=== PATIENT | male | born 1935 | race Caucasian/White ===

== ENCOUNTER 2017-02-03 14:28 | Emergency (ER) | payer MEDICARE ==
[2017-02-03 15:37] LABS: BASOPHILS 0.1 % (0-2); EOSINOPHILS 0.4 % (0-7); HEMATOCRIT 30.2 % (42.0-54.0); HEMOGLOBIN 10.1 g/dL (13.5-17.5); IMMATURE GRANULOCYTES 1.7 % (0-5); LYMPHOCYTES 9.6 % (15-50); MCH 36.3 pg (26.0-34.0); MCHC 33.4 g/dL (31.0-37.0); MCV 108.6 fL (80.0-100.0); MEAN PLATELET VOLUME 12.3 fL (7.4-10.4); MONOCYTES 13.4 % (2-11); NEUTROPHILS 74.8 % (40-80); PLATELET COUNT 155 10x3/uL (130-400); RBC 2.78 10x6/uL (4.20-6.10); RDW 15.1 % (11.5-14.5); WBC 7.6 10x3/uL (4.8-10.8)
[2017-02-03 16:24] LABS: APPEARANCE CLEAR (CLEAR); BILIRUBIN NEGATIVE (NEGATIVE); COLOR YELLOW (YELLOW); GLUCOSE NEGATIVE (NEGATIVE); KETONE NEGATIVE (NEGATIVE); LEUKOCYTE ESTERASE NEGATIVE (NEGATIVE); NITRITE NEGATIVE (NEGATIVE); PROTEIN NEGATIVE (NEGATIVE); UROBILINOGEN NORMAL (NORMAL)
[2017-02-03 16:35] LABS: ALBUMIN 2.5 g/dL (3.4-5.0); ANION GAP 15.3 mmol/L (8-16); BILIRUBIN - TOTAL 0.65 mg/dL (0.2-1.3); CALCIUM 8.9 mg/dL (8.5-10.1); CARBON DIOXIDE 29.7 mmol/L (21.0-32.0); CREATININE - SERUM 1.1 mg/dL (0.6-1.3); PROTEIN - SERUM 6.4 g/dL (6.4-8.2)
== END 2017-02-03 18:13 | disposition home or self-care (01) ==
LOC: D.ER 14:28
PROVIDERS: Emergency Medicine
DX: M54.5 Low back pain (principal)

== ENCOUNTER 2017-02-26 16:03 | Inpatient (IN) | payer MEDICARE ==
[~2017-02-26] VITALS: Ht 177.8 cm; Wt 99.8 kg
[~2017-02-26 16:03] MED LIST: ASPIRIN325 MG PO; BUMEX 1 MG TAB1 MG PO; CALAN SR240 MG PO; CYCLOBENZAPRINE10 MG PO; ELIQUIS2.5 MG PO; GLUCOPHAGE500 MG PO; K-TAB10 MEQ PO; MINIPRESS 5 MG C5 MG PO; MULTIPLE VITAMI1 TA1 PO; NORCO 7.5/325 T1 TA1 PO; TENORMIN100 MG PO; TIMOPTIC XE 0.5%5 ML EACH EYE; XALATAN 0.0052.5 ML EACH EYE
--- NOTE | 2017-02-26 17:00 | NUR ---
REPORT CALLED TO [facility]. TRANSFERRED VIA BED TO ROOM 1140B. FAMILY AT BEDSIDE.
[2017-02-26 18:40] VITALS: BP 98/47; BMI 31.6
--- NOTE | 2017-02-26 19:09 | NUR ---
PT HAS RASH TO LLE FROM KNEE TO TOES. HAS WHAT APPEARS TO BE REPTURED BLISTERS TO TOP OF LEFT VALERA 2 X 3 CM. POSS. REPTURED BLISTER TO LEFT LATERAL FOOT AREA 1.5 X 2 CM. RLE HAS 3+ EDEMA. SMALL DSG BY RT NECK AND CLAVICLE. STATES HE FELL January. RT GROIN IS PURPLE. BACK OF RT LEG IS DARK PURPLE AND SOLD PURPLE FROM BOTTOM OF BUTTOCK CHEEK TO HALF WAY DOWN HIS LEG. RIGHT HIP HAS PURPLE PATCHES NOTED. LEFT HIP HAS PURPLE PATHES NOTED. STAGE 2 LEFT BUTTOCK CHEEK PRESSURE ULCER, 2 X 1.5 CM. JUST BELOW RIGHT BUTTOCK CHEEK 1 X 1 CM, NON STAGABLE. INSIDE LEFT BUTTOCK CHEEK = TWO STAGE 3 PRESSURE ULCERS. 4 X 0.75 CM, 4.5 X 2 CM. MEPILEX WAS APPLED TO PRESSURE WOUNDS. HEELS BRIDGED. STAGE 2 PRESSURE ULCER TO LEFT HEEL = 4 X 1.5 CM. O2 4L NC BOTH BUE HAVE 3+ FLUID LIKE EDEMA TO MID TO UPPER ARMS. IS MAX ASST TO TURN. HAS AIR MATTRESS IN PLACE. INCONT OF URINE AND STOOL ON PAD. ALERT AND ORIENTED.
[2017-02-26 19:45] VITALS: BP 112/51
--- NOTE | 2017-02-26 19:45 | NUR ---
ASSESSMENT PER FLOW SHEET, VS OBTAINED, DRESSINGS INTACT, PT USING URINAL INST, EMPTIED 250 MLS OF DARK YELLOW URINE FROM URINAL, PT SLIGHTLY AGITATED, REFUSED TO PUT GOWN BACK ON AT THIS TIME, STATES "ALL I WANT TO DO IS GET SOME REST", INFORMED PT THAT I WILL LET HIM REST, PT DENIES NEEDS AT THIS TIME, BED IN LOW POSITION, SIDE RAILS X 2, CALL LIGHT IN REACH
--- NOTE | 2017-02-26 20:30 | NUR ---
PT RESTING WITH EYES CLOSED, RESP QUIET, NO DISTRESS NOTED, LEFT UNDISTURBED AT THIS TIME
--- NOTE | 2017-02-26 21:10 | NUR ---
PT RESTING WITH EYES CLOSED, RESP QUIET, NO DISTRESS NOTED, LEFT UNDISTURBED AT THIS TIME, WAITING ON PHARMACY TO BRING MEDS
--- NOTE | 2017-02-26 21:40 | NUR ---
PT AWAKE, ADM BUMEX PO PER MD ORDERS, SEE EMAR, WITH FRESH H20, INFORMED PT THAT I WILL BE RIGHT BACK TO ADM EYE DROPS
--- NOTE | 2017-02-26 21:48 | NUR ---
ADM EYE DROPS PER MD ORDERS, SEE EMAR, ASSISTED PT WITH URINAL, PT VOIDED 175 MLS OF DARK YELLOW URINE, INFORMED PT THAT I WILL BE BACK IN A FEW MINUTES TO REPOSITION HIM, PT VERBALIZES UNDERSTANDING
--- NOTE | 2017-02-26 22:00 | NUR ---
THIS RN AND SUZANNA ABREU RN PLACED PT ON RAYSHAWN BED ALARM, PT AGREED TO PUTTING GOWN BACK ON, REPOSITIONED PT IN BED, LEGS AND HEELS ELEVATED, PT COVERED UP, PT STATES "THAT FEELS SO MUCH BETTER", PT NOT AGITATED AT THIS TIME, PT DENIES FURTHER NEEDS, BED IN LOW POSITION, SIDE RAILS X 2, CALL LIGHT IN REACH, BED ALARM WORKING PROPERLY
[2017-02-27] VITALS (16 sets, daily range): BP systolic 77–116; BP diastolic 36–56; Ht 177.8 cm; Wt 99.8 kg
--- NOTE | 2017-02-27 00:20 | NUR ---
PT RESTING WITH EYES CLOSED, RESP QUIET, NO DISTRESS NOTED, LEFT UNDISTURBED AT THIS TIME, BED IN LOW POSITION, SIDE RAILS X 2, CALL LIGHT IN REACH, BED ALARM ON AND WORKING PROPERLY
--- NOTE | 2017-02-27 01:08 | NUR ---
PT AWAKE, EMPTIED 250 MLS OF DARK YELLOW URINE FROM URINAL, PT STATES "I'M DOING OK", DENIES NEEDS OR PAIN, BED IN LOW POSITION, SIDE RAILS X 2, CALL LIGHT IN REACH, BED ALARM ON AND WORKING PROPERLY
--- NOTE | 2017-02-27 02:42 | NUR ---
PT AWAKE, SLIGHTLY AGITATED, WANTS TO GET UP, EXPLAINED TO PT THAT HE COULD NOT GET UP UNTIL PT CAME TO EVALUATE, PT REMOVED GOWN, REFUSED TO PUT IT BACK ON, PT C/O ALL OVER PAIN, ADM NORCO PO PER MD ORDERS, SEE EMAR, O2 PLACED BACK ON, WARM BLANKET PLACED OVER PT, PT STATES "THAT FEELS GOOD, I'M WARM NOW", PT DENIES FURTHER NEEDS, BED IN LOW POSITION, SIDE RAILS X 2, CALL LIGHT IN REACH, RAYSHAWN BED ALARM ON AND WORKING PROPERLY
--- NOTE | 2017-02-27 04:06 | NUR ---
PT RESTING WITH EYES CLOSED, RESP QUIET, NO DISTRESS NOTED, LEFT UNDISTURBED AT THIS TIME, BED IN LOW POSITION, SIDE RAILS X 2, CALL LIGHT IN REACH, RAYSHAWN BED ALARM ON AND WORKING PROPERLY
--- NOTE | 2017-02-27 04:50 | NUR ---
PT AWAKE, THIS RN AND SUZANNA ABREU, RN TO ROOM FOR LINE DRAW, PT SHERITA WELL, EXTRA DRAW SHEET PLACED, PT REPOSITIONED, GOWN AND O2 PLACED BACK ON, ASSISTED PT WITH URINAL, PT VOIDED 150 MLS OF DARK YELLOW URINE, PT DENIES FURTHER NEEDS, BED IN LOW POSITION, SIDE RAILS X 2, CALL LIGHT IN REACH, RAYSHAWN BED ALARM ON AND WORKING PROPERLY
[2017-02-27 05:16] LABS: BASOPHILS 0 % (0-2); EOSINOPHILS 0 % (0-7); HEMATOCRIT 23.9 % (42.0-54.0); HEMOGLOBIN 7.7 g/dL (13.5-17.5); IMMATURE GRANULOCYTES 0.6 % (0-5); LYMPHOCYTES 6.5 % (15-50); MCH 30.6 pg (26.0-34.0); MCHC 32.2 g/dL (31.0-37.0); MCV 94.8 fL (80.0-100.0); MONOCYTES 6.5 % (2-11); NEUTROPHILS 86.4 % (40-80); PLATELET COUNT 183 10x3/uL (130-400); RBC 2.52 10x6/uL (4.20-6.10); RDW 18.6 % (11.5-14.5); WBC 4.8 10x3/uL (4.8-10.8)
--- NOTE | 2017-02-27 05:18 | NUR ---
PT SKID MAN LIGHT, ASSISTED PT WITH TV, PT DENIES FURTHER NEEDS OR PAIN AT THIS TIME, BED IN LOW POSITION, SIDE RAILS X 2, CALL LIGHT IN REACH, RAYSHAWN BED ALARM ON AND WORKING PROPERLY
[2017-02-27 05:29] LABS: CALC OSMOLALITY 295 mosm/kg (275-300); CALCIUM 7.6 mg/dL (8.5-10.1); CARBON DIOXIDE 31.7 mmol/L (21.0-32.0); CHLORIDE - SERUM 106 mmol/L (98-107); CREATININE - SERUM 0.9 mg/dL (0.6-1.3); GLUCOSE 89 mg/dL (74-106); POTASSIUM - SERUM 3.1 mmol/L (3.5-5.1); SODIUM 143 mmol/L (136-145); UREA NITROGEN 45 mg/dL (7-18); eGFR NON AFRICAN AMERICAN 86 mL/min (90-120)
--- NOTE | 2017-02-27 06:44 | NUR ---
SHIFT REPORT TO DAY SHIFT
--- NOTE | 2017-02-27 07:43 | NUR ---
SITTING UP IN BED RESTING. OFFERS NO COMPLAINTS. NO S/SX OF DISTRESS. WILL CONITNUE TO MONITOR. CALL LIGHT IN REACH
--- NOTE | 2017-02-27 13:15 | NUR ---
BLOOD TRANSFUSION STARTED BY ESTIVEN WARNER RN AND MYSELF. PT TOLERATING WELL THUS FAR NO S/SX OF DISTRESS.
--- NOTE | 2017-02-27 14:15 | NUR ---
STARTED BLOOD TRANSFUSION RIGHT UPPER ARM PICC LINE STARTED AT 75ML/HR BY ESTIVEN WARNER RN.
--- NOTE | 2017-02-27 14:15 | NUR ---
FIRST UNIT OF PRBC STARTED AT 75ML/HR. PT IS ALERT AND ORIENTED FAMILY AT BEDSIDE. WILL CONTINUE TO MONITOR PT.
--- NOTE | 2017-02-27 14:30 | NUR ---
PT BP 70/55 WHICH IS LOWER THAN PRE-FUSION BP. PT SHOWS NO S/SX OF DISTRESS. ELEVATED LOWER EXTREMITIES AND INFORMED CHARGE NURSE ESTIVEN WARNER RN. FAMILY STILL REMAINS AT BEDSIDE. NO CONCERNS VOICED AT THIS TIME. WILL CONTINUE TO REMAIN AT BEDSIDE TO MONITOR PT.
--- NOTE | 2017-02-27 16:40 | NUR ---
BLOOD INFUSION COMPLETE PT IS ALERT AND ORIENTED EATING SOME DINNER. OFFERS NO COMPLAINTS AT THIS TIME. CALL LIGHT IN REACH. WILL CONTINUE TO MONITOR
--- NOTE | 2017-02-27 18:15 | NUR ---
SITTING UP IN BED RESTING. SECOND UNIT ON PRBC STARTED RUNNING AT 75ML/HR FOR THE 1ST 15 MIN. PT SHOWS NO S/SX OF DISTRESS. WILL CONTINUE TO MONITOR.
--- NOTE | 2017-02-27 18:19 | NUR ---
RESTING QUIETLY IN BED. NO S/S DISTRESS. CALL LIGHT IN REACH.
--- NOTE | 2017-02-27 18:30 | NUR ---
NO S/SX OF DISTRESS, EYES CLOSED RESTING QUIETLY. APPROPRIATE RISE AND FALL OF CHEST. EASILY AROUSED WITH VERBAL STIMULI. VITALS STABLE. RATE INFUSING IS NOW 125ML/HR. WILL CONTINUE TO MONITOR PT
--- NOTE | 2017-02-27 19:30 | NUR ---
PT REST IN BED, AND RECEIVED BLOOD TRANSFUSION.
--- NOTE | 2017-02-27 19:30 | NUR ---
prbc's infusing per midline, pt states he feels claustophobic, opened the blinds and he stated that helped. deep breathing exercises also were effective in decreasing anxiety. pt denies pain.
--- NOTE | 2017-02-27 19:52 | NUR ---
LYING IN BED HOB 30 DEGREES EYES CLOSED RESTING QUIETLY. NO S/SX OF DISTRESS. CONTINUES ON AT 2L NC. APPROPRIATE RISE AND FALL OF CHEST. EASILY AROUSED WITH VERBAL STIMULI. CALL LIGHT IN REACH. WILL CONTINUE TO MONITOR
--- NOTE | 2017-02-27 22:45 | NUR ---
CHECK PT'S VITAL SIGNS FOR BLOOD TRANSFUTION ORDERED. SEE FLOW SHEET.
--- NOTE | 2017-02-28 06:57 | NUR ---
RESTING QUIETLY IN BED. NO S/S DISTRESS. CALL LIGHT IN REACH
[2017-02-28 07:00] LABS: BASOPHILS 0 % (0-2); EOSINOPHILS 0.2 % (0-7); IMMATURE GRANULOCYTES 0.5 % (0-5); LYMPHOCYTES 6.5 % (15-50); MCH 30.9 pg (26.0-34.0); MCHC 33.1 g/dL (31.0-37.0); MCV 93.3 fL (80.0-100.0); MEAN PLATELET VOLUME 12.4 fL (7.4-10.4); MONOCYTES 8.5 % (2-11); NEUTROPHILS 84.3 % (40-80); PLATELET COUNT 156 10x3/uL (130-400); RDW 18.2 % (11.5-14.5)
[2017-02-28 07:02] VITALS: BP 110/54
[2017-02-28 07:15] LABS: HEMATOCRIT 29.3 % (42.0-54.0); HEMOGLOBIN 9.7 g/dL (13.5-17.5); RBC 3.14 10x6/uL (4.20-6.10)
--- NOTE | 2017-02-28 07:50 | NUR ---
LYING IN BED RESTING QUIETLY. OFFERS NO COMPLAINTS AT THIS TIME. CALL LIGHT IN REACH WILL CONTINUE TO MONTIOR
[2017-02-28 08:00] VITALS: BP 112/44
--- NOTE | 2017-02-28 17:30 | NUR ---
ASSISTED WITH EATING DINNER ATE 25% OF MEAL. OFFERS NO COMPLAINTS. WILL CONTINUE TO MONITOR. FAMILY AT BEDSIDE
--- NOTE | 2017-02-28 19:25 | NUR ---
IN BED, AWAKE. NO COMPLAINTS AT THIS TIME.
--- NOTE | 2017-02-28 19:30 | NUR ---
SIT UP IN BED AND WATCH TV.
[2017-02-28 23:51] VITALS: BP 112/56
--- NOTE | 2017-03-01 00:35 | NUR ---
REST IN BED QUIETLY, EYE CLOSE, BED LOW, CALL LIGHT WITHIN REACH.
[2017-03-01 03:25] LABS: BASOPHILS 0 % (0-2); EOSINOPHILS 0.9 % (0-7); HEMATOCRIT 30.5 % (42.0-54.0); HEMOGLOBIN 9.7 g/dL (13.5-17.5); IMMATURE GRANULOCYTES 0.9 % (0-5); LYMPHOCYTES 11.5 % (15-50); MCH 30.4 pg (26.0-34.0); MCHC 31.8 g/dL (31.0-37.0); MEAN PLATELET VOLUME 11.6 fL (7.4-10.4); NEUTROPHILS 82.7 % (40-80); PLATELET COUNT 173 10x3/uL (130-400); RBC 3.19 10x6/uL (4.20-6.10); RDW 18.3 % (11.5-14.5); WBC 4.5 10x3/uL (4.8-10.8)
[2017-03-01 03:26] LABS: MCV 95.6 fL (80.0-100.0)
[2017-03-01 03:47] LABS: CALCIUM 7.8 mg/dL (8.5-10.1); CARBON DIOXIDE 32.5 mmol/L (21.0-32.0); CHLORIDE - SERUM 109 mmol/L (98-107); CREATININE - SERUM 0.8 mg/dL (0.6-1.3); GLUCOSE 87 mg/dL (74-106); SODIUM 142 mmol/L (136-145); eGFR NON AFRICAN AMERICAN > 90 mL/min (90-120)
[2017-03-01 03:49] LABS: CALC OSMOLALITY 286 mosm/kg (275-300); POTASSIUM - SERUM 3.6 mmol/L (3.5-5.1); UREA NITROGEN 27 mg/dL (7-18)
--- NOTE | 2017-03-01 07:16 | NUR ---
RESTING QUIETLY IN BED. NO S/S DISTRESS. CALL LIGHT IN REACH
[2017-03-01 08:44] VITALS: BP 137/56
--- NOTE | 2017-03-01 09:40 | NUR ---
PT AM MEDS ADMINISTERED. PT DENIES NEEDS. WCTM.
--- NOTE | 2017-03-01 10:30 | NUR ---
PT REQ AND REC'D PRN PAIN MED. WCTM.
--- NOTE | 2017-03-01 11:29 | NUR ---
NOTIFIED WOUND NURSE OF CONSULT.
--- NOTE | 2017-03-01 12:07 | NUR ---
NUTRITION MONITORING & EVAL CHART REVIEWED, PT IN THERAPY. < 25% INTAKE BREAKFAST. PT DID CONSUME MOST OF ENSURE. WILL CONTINUE TO PROVIDE DIET, ENSURE. MONITOR PO INTAKE. RD FOLLOWING
--- NOTE | 2017-03-01 15:08 | NUR ---
PT RESTING IN BED, DENIES NEEDS. WCTM.
--- NOTE | 2017-03-01 19:10 | NUR ---
REST IN BED AND WATCH TV.
--- NOTE | 2017-03-01 21:35 | NUR ---
PT BP LOW, 110/50, HELD BP MEDS.
--- NOTE | 2017-03-01 22:10 | NUR ---
TAKE A BED BATH FOR PT, PT REFUSE BATH FEET, BACK AREA, STATE:" DO NOT TOUCH MY FEET AND BACK AREA."
--- NOTE | 2017-03-02 00:40 | NUR ---
IN BED ON AIR OVERLAY. RESTING QUIETLY. PATIENT'S PRIMARY NURSE REPORTED EARLIER THAT MR. EASON REFUSED TO ALLOW HIS PRIMARY NURSE TO BATH HIS BACK BOTTOM OR LEGS SAYING THAT TURNING TO DO SO WOULD CAUSE HIM TOO MUCH PAIN. SHE WAS ABLE TO WASH HIS FACE AND UPPER BODY, BUT NOT HIS ANTERIOR LEGS AND FEET DUE TO PATIENT REFUSAL.
[2017-03-02 02:49] VITALS: BP 110/50
--- NOTE | 2017-03-02 03:03 | NUR ---
REST IN BED, EYE CLOSE, BED LOW, CALL LIGHT WITHIN REACH.
[2017-03-02 08:00] VITALS: BP 126/63
--- NOTE | 2017-03-02 09:45 | NUR ---
PT AM MEDS ADMINISTERD. PT DENIES FURTHER NEEDS. WCTM.
--- NOTE | 2017-03-02 11:05 | NUR ---
PT DRESSING CHANGED TO PRESSURE INJURY AREAS.
--- NOTE | 2017-03-02 12:15 | NUR ---
PT EATING LUNCH, DENIES NEEDS. WCTM.
--- NOTE | 2017-03-02 15:36 | NUR ---
Wound care consult: Pt had several pressure injuries upon admission including: Left buttock stage 2 pressure injury measuring 2cm x 1.5cm Left buttock @ coccyx region stage 3 pressure injury measuring 4.5cm x 2cm Left buttock @ sacral region stage 3 pressure injury measuring 4cm x 1cm Right gluteal fold unstageable pressure injury measuring 2cm x 2cm Left heel is unstageable pressure injury measuring 2cm x 4cm. All wounds are being protected with mepilex border gauze and turning/repositioning and bridging. Wound care will continue to follow.
--- NOTE | 2017-03-02 17:48 | NUR ---
PT RESTING IN BED, DENIES NEEDS. WCTM.
--- NOTE | 2017-03-02 19:26 | NUR ---
PT IS RESTING IN BED WITH EYES CLOSED. AWOKE EASILY TO VERBAL STIMULI. DENIES PAIN OR DISCOMFORT AT THIS TIME. NO NEEDS VOICED. RIGHT ARM PICC LINE NOTED. O2 IS ON @ 2LPM PER NC. NO SOB NOTED. DRESSINGS TO COCCYX AND LEFT ANKLE ARE CDI. SR'S ARE UP X 3 IN BED. CALL LIGHT AND BEDSIDE TABLE ARE WITHIN EASY REACH.
[2017-03-02 19:30] VITALS: BP 95/50
--- NOTE | 2017-03-02 21:30 | NUR ---
PT IS RESTING IN BED WITH EYES CLOSED. NO ACUTE DISTRESS NOTED.
--- NOTE | 2017-03-03 00:01 | NUR ---
RESTING IN BED WITH EYES CLOSED.
--- NOTE | 2017-03-03 01:40 | NUR ---
RESTING QUIETLY, EYES CLOSED.
--- NOTE | 2017-03-03 03:00 | NUR ---
PT RESTING IN BED WITH EYES CLOSED. NO DISTRESS NOTED.
--- NOTE | 2017-03-03 06:18 | NUR ---
PT AWOKE EASILY TO VERBAL STIMULI. NOTED TO BE INC. OF URINE. PT STATES HE COULD NOT GET TO THE URNIAL FAST ENOUGH DUE TO WEARING PANTS. MERYL CARE GIVEN. PANTS LEFT OFF TO ALLOW USE OF URINAL.
[2017-03-03 08:14] VITALS: BP 132/51
--- NOTE | 2017-03-03 08:35 | NUR ---
PT AM MEDS ADMINISTERED. PT RESTING IN BED, DENIES NEEDS. WCTM.
--- NOTE | 2017-03-03 17:22 | NUR ---
PT DRESSING CHANGED TO RIGHT PICC LINE. STERILE PROCEDURES OBSERVED. PT DENIES NEEDS AT THIS TIME. BED LOW. CL IN REACH.
--- NOTE | 2017-03-03 19:50 | NUR ---
PT RESTING WITH EYES CLOSED, AROUSES TO SOFT VERBAL STIMULATION, INFORMED PT THAT I NEED TO DO A BED BATH TONIGHT, PT REFUSES, INFORMED PT THAT IF HE CHANGES HIS MIND, I WILL DO THE BED BATH, INFORMED PT THAT I WILL BE BACK SHORTLY TO DO ASSESSMENT AND VITAL SIGNS, PT VERBALIZES UNDERSTANDING, DENIES NEEDS OR PAIN AT THIS TIME, DINNER TRAY REMOVED
--- NOTE | 2017-03-03 20:30 | NUR ---
PT RESTING WITH EYES CLOSED, RESP QUIET, NO DISTRESS NOTED, LEFT UNDISTURBED AT THIS TIME
[2017-03-03 21:27] VITALS: BP 97/44
--- NOTE | 2017-03-03 21:27 | NUR ---
PT RESTING WITH EYES CLOSED, AROUSES TO SOFT VERBAL STIMULATION, ASSESSMENT PER FLOW SHEET, VS OBTAINED, PT REPORTS FLATUS, EMPTIED 150 MLS OF DARK YELLOW URINE FROM URINAL, PT DENIES PAIN, ADM 2100 MEDS PER MD ORDERS, SEE EMAR, DID NOT ADM BP MEDS AT THIS TIME DUE TO BP 97/44, PT REPOSITONED TO RIGHT SIDE, DENIES NEEDS AT THIS TIME
--- NOTE | 2017-03-03 22:30 | NUR ---
PT RESTING WITH EYES CLOSED, RESP QUIET, NO DISTRESS NOTED, LEFT UNDISTURBED AT THIS TIME
--- NOTE | 2017-03-04 00:35 | NUR ---
PT AWAKE, PT REPOSTIONED, FOAMED TUBES PLACED ON NC, EMPTIED 100 MLS OF DARK YELLOW URINE FROM URINAL, PT DENIES PAIN, REQUESTED AND SERVED FRESH H20, PT DENIES FURTHER NEEDS
--- NOTE | 2017-03-04 02:38 | NUR ---
PT RESTING WITH EYES CLOSED, RESP QUIET, NO DISTRESS NOTED, LEFT UNDISTURBED AT THIS TIME, BED IN LOW POSITION, SIDE RAILS X 2, CALL LIGHT IN REACH
--- NOTE | 2017-03-04 04:18 | NUR ---
PT RESTING WITH EYES CLOSED, RESP QUIET, NO DISTRESS NOTED, LEFT UNDISTURBED AT THIS TIME
--- NOTE | 2017-03-04 06:26 | NUR ---
AM MEDS GIVEN. RED PORT ON PICC LINE OCCLUDED. UNABLE TO FLUSH. PT DENIES NEEDS. EMPTIED APPROX 300 CC FROM URINAL AT THIS TIME. BED LOW. PHONE AND CALL LIGHT IN REACH. SRX2.
--- NOTE | 2017-03-04 06:40 | NUR ---
PT INCONTINENT OF BOWEL, PT CLEANED UP WITH WET WARM CLOTHS, ADULT BRIEFS CHANGED, DRESSINGS TO COCCYX CHANGED, CLEAN LINENS APPLIED, PT DENIES FURTHER NEEDS
--- NOTE | 2017-03-04 07:00 | NUR ---
SHIFT REPORT TO DAY SHIFT
--- NOTE | 2017-03-04 07:35 | NUR ---
RESTING QUIETLY IN BED. NO S/S DISTRESS OR NEEDS. CALL LIGHT IN REACH
--- NOTE | 2017-03-04 07:45 | NUR ---
SITTING UP IN BED WATCHING MORNING NEWS. SETUP BREAKFAST TRAY. PT STATES "I'M TOO UPSET TO EAT RIGHT NOW" I VOICED CONCERN AND ASKED IF THERE IS ANYTHING I COULD DO, PT STATES "I DON'T WANT TO DISCUSS IT RIGHT NOW, MAYBE LATER" MADE SURE CALL LIGHT WAS IN REACH AND ADVISED PT IF HE NEEDED ANYTHING TO CALL. WILL CONTINUE TO CK ON PT.
[2017-03-04 08:16] VITALS: BP 97/45
--- NOTE | 2017-03-04 10:27 | NUR ---
sitting up in bed watching tv and resting. turned pt to right side using pillows to help remind to stay on side. call light in reach. offers no complaints. will continue to monitor
--- NOTE | 2017-03-04 13:20 | NUR ---
CHANGED DRESSING TO LEFT AND RIGHT LOWER BUTTOCK CHEEKS AND COCCYX DUE TO BEING SOILED BY MED STOOL INCONTINENCE. STOOL WAS DARK BROWN AND VERY LOOSE. PT TOLERATED WELL AND OFFERS NO COMPLAINTS. CONTINUES ON 2L OF . CALL LIGHT IN REACH. WILL CONTINUE TO MONITOR
--- NOTE | 2017-03-04 14:40 | NUR ---
Nutrition Follow Up: Chart reviewed. Pt is eating 27% meal avg on a regular mechanical soft diet. He is receiving Ensure TID. Noted per wound care - pt with multiple stage II and III wounds. +BM 03/04/17. Meds noted including Megace, Metformin and Bumex. No new labs to review. Rec continue current diet, supplement regimen. Rec MV, Vit C, Zinc supplement daily. Will send Nemesio BID to promote wound healing. RD following.
--- NOTE | 2017-03-04 15:37 | NUR ---
SITTING UP IN BED WATCHING TV. OFFERS NO COMPLAINTS. DENIES ANY PAIN. CALL LIGHT IN REACH. WILL CONTINUE TO MONITOR
--- NOTE | 2017-03-04 17:16 | NUR ---
SITTING UP IN BED RESTING. SET UP DINNER TRAY. OFFERS NO COMPLAINTS. PT STATES HE WILL TRY AND EAT SOME OF HIS DINNER. CALL LIGHT IN REACH, WILL CONTINUE TO MONITOR.
--- NOTE | 2017-03-04 19:02 | NUR ---
CHANGED DRESSINGS TO LEFT AND RIGHT BUTTOCKS CHECK AND COCCYX DUE TO LARGE STOOL INCONTINENCE. ALL LINENS CHANGED AND PARTIAL BED BATH PERFORMED. CALL LIGHT IN REACH. WILL CONTINUE TO MONITOR PT CELLPHONE IS MISSING PUT A CALL INTO DIRTY LINENS TO BE ON LOOK OUT FOR HIS BLACK FLIP PHONE.
[2017-03-04 19:40] VITALS: BP 107/47
--- NOTE | 2017-03-04 19:40 | NUR ---
PM ROUNDS MADE, VS OBTAINED, INFORMED PT THAT I WILL BE BACK SHORTLY TO DO ASSESSMENT, PT VERBALIZES UNDERSTANDING, DENIES NEEDS OR PAIN AT THIS TIME
--- NOTE | 2017-03-04 20:30 | NUR ---
PT RESTING WITH EYES CLOSED, RESP QUIET, NO DISTRESS NOTED, LEFT UNDISTURBED AT THIS TIME
--- NOTE | 2017-03-04 21:24 | NUR ---
PT AWAKE, ASSESSMENT PER FLOW SHEET, ADM 2100 MEDS PER MD ORDERS, SEE EMAR, GOWN NOTED TO BE OFF, GOWN PUT BACK ON, EMPTIED [place], WARM BLANKET APPLIED, PT REPORTS PASSING GAS, FRESH H20 SERVED, PT DENIES NEEDS OR PAIN AT THIS TIME
--- NOTE | 2017-03-04 22:35 | NUR ---
PT AWAKE, WATCHING TV, EMPTIED 100 MLS OF DARK YELLOW URINE FROM URINAL, PT DENIES NEEDS OR PAIN AT THIS TIME
--- NOTE | 2017-03-05 00:35 | NUR ---
PT AROUSES TO ME IN ROOM EMPTYING URINAL, PT DENIES NEEDS OR PAIN, STATES "I'M OK"
--- NOTE | 2017-03-05 02:03 | NUR ---
PT RESTING WITH EYES CLOSED, RESP QUIET, NO DISTRESS NOTED, LEFT UNDISTURBED AT THIS TIME
--- NOTE | 2017-03-05 04:16 | NUR ---
PT RESTING WITH EYES CLOSED, RESP QUIET, NO DISTRESS NOTED, LEFT UNDISTURBED AT THIS TIME
--- NOTE | 2017-03-05 05:05 | NUR ---
PT RESTING WITH EYES CLOSED, AROUSES TO SOFT VERBAL STIMUALTION, PT INCONTINENT OF URINE AND BOWEL THIS MORNING, PT CLEANED UP WITH WET WARM WIPES, DRAW SHEET, PINK PAD, BLUE CHUX, CLEAN LINENS, BRIEFS APPLIED, AND CLEAN SHIRT, FEET ELEVATED, IRMA CHEN RN, ATTEMPTED TO FLUSH PICC LINE WITH NO SUCCESS, BED IN LOW POSITION, SIDE RAILS X 2, CALL LIGHT IN REACH
--- NOTE | 2017-03-05 05:05 | NUR ---
LATE ENTRY: DRESSINGS ON BUTTOCK CHANGED
--- NOTE | 2017-03-05 06:31 | NUR ---
PT AWAKE, ADM 0600 MED PO PER MD ORDERS, SEE EMAR, PT DENIES NEEDS
--- NOTE | 2017-03-05 07:00 | NUR ---
SHIFT REPORT TO DAY SHIFT
--- NOTE | 2017-03-05 07:13 | NUR ---
RESTING QUIETLY IN BED. EYES CLOSED. NO S/S DISTRESS OR NEEDS. CALL LIGHT IN REACH.
--- NOTE | 2017-03-05 07:41 | NUR ---
LYING IN BED RESTING. EASILY AROUSED WITH STIMULI. CONTINUES ON O2 AT 2L NC. CALL LIGHT IN REACH. WILL CONTINUE TO MONITOR.
[2017-03-05 08:03] VITALS: BP 108/54
[2017-03-05 08:03] LABS: BASOPHILS 0.3 % (0-2); EOSINOPHILS 0.7 % (0-7); HEMATOCRIT 28.1 % (42.0-54.0); HEMOGLOBIN 8.9 g/dL (13.5-17.5); IMMATURE GRANULOCYTES 0.7 % (0-5); LYMPHOCYTES 22.6 % (15-50); MCHC 31.7 g/dL (31.0-37.0); MCV 97.9 fL (80.0-100.0); MEAN PLATELET VOLUME 12.2 fL (7.4-10.4); MONOCYTES 5.1 % (2-11); NEUTROPHILS 70.6 % (40-80); RBC 2.87 10x6/uL (4.20-6.10); RDW 18.6 % (11.5-14.5)
[2017-03-05 08:09] LABS: PLATELET COUNT 124 10x3/uL (130-400)
[2017-03-05 08:30] LABS: CALC OSMOLALITY 285 mosm/kg (275-300); CARBON DIOXIDE 30.4 mmol/L (21.0-32.0); CHLORIDE - SERUM 105 mmol/L (98-107); CREATININE - SERUM 0.9 mg/dL (0.6-1.3); GLUCOSE 108 mg/dL (74-106); POTASSIUM - SERUM 3.4 mmol/L (3.5-5.1); SODIUM 141 mmol/L (136-145); UREA NITROGEN 23 mg/dL (7-18); eGFR NON AFRICAN AMERICAN 86 mL/min (90-120)
--- NOTE | 2017-03-05 08:49 | NUR ---
REMOVED OLD DURAGESIC PATCH FROM LEFT SHOULDER, PUT NEW DURAGESIC PATCH ON RIGHT UPPER ARM
--- NOTE | 2017-03-05 11:12 | NUR ---
SITTING UP IN BED PERFORMING ORAL HYGIENE. OFFERS NO COMPLAINTS. CALL LIGHT IN REACH. WILL CONTINUE TO MONITOR
--- NOTE | 2017-03-05 12:07 | NUR ---
SITTING UP IN BED WATCHING TV. OFFERS NO COMPLAINTS. CALL LIGHT IN REACH. WILL CONTINUE TO MONITOR
--- NOTE | 2017-03-05 14:42 | NUR ---
in therapy gym with occupational therapy.
--- NOTE | 2017-03-05 17:37 | NUR ---
SITTING UP IN BED EATING DINNER. OFFERS NO COMPLAINTS. NO S/SX OF DISTRESS. CALL LIGHT IN REACH. WILL CONTINUE TO MONITOR
[2017-03-05 19:15] VITALS: BP 94/52
--- NOTE | 2017-03-05 19:15 | NUR ---
PT AWAKE, ASSESSMENT PER FLOW SHEET, VS OBTAINED, PT DRY AT THIS TIME, PT USING URINAL, SHIRT SOILED WITH FOOD STAINS, PT REFUSES CHANGING OF SHIRT AT THIS TIME, EMPTIED 150 MLS OF DARK YELLOW URINE FROM URINAL, PT BOTH LEGS ELEVATED ON PILLOW, PT DENIES NEEDS OR PAIN AT THIS TIME
--- NOTE | 2017-03-05 21:28 | NUR ---
PT AWAKE AT THIS TIME, ADM 2100 MEDS PER MD ORDERS, SEE EMAR, EMPTIED 150 MLS OF DARK YELLOW URINE FROM URINAL, PT DRY AT THIS TIME, CONTINUES TO REFUSE TO CHANGE SHIRTS, PT DENIES NEEDS OR PAIN, BED IN LOW POSITION, SIDE RAILS X 2, CALL LIGHT IN REACH, BED ALARM ON AND WORKING PROPERLY
--- NOTE | 2017-03-05 22:30 | NUR ---
PT RESTING WITH EYES CLOSED, RESP QUIET, NO DISTRESS NOTED, LEFT UNDISTURBED AT THIS TIME
--- NOTE | 2017-03-06 02:23 | NUR ---
PT RESTING WITH EYES CLOSED, RESP QUIET, NO DISTRESS NOTED, LEFT UNDISTURBED AT THIS TIME, URINAL EMPTIED, BED IN LOW POSITION, SIDE RAILS X 2, CALL LIGHT IN REACH, BED ALARM ON AND WORKING PROPERLY
--- NOTE | 2017-03-06 05:00 | NUR ---
PT RESTING WITH EYES CLOSED, AROUSES TO SOFT VERBAL STIMUALTION, THIS RN AND IRMA CHEN, RN CLEANED PT UP WITH WET WARM WIPES, DRAW SHEET, PINK PAD, BLUE CHUX, AND SHIRT CHANGED, LARGE DRESSING OVER BUTTOCK CHANGED, PT HAD SMALL BM, FRESH LINENS APPLIED, PT REQUESTED AND SERVED BOTTLE WATER, EMPTIED 100 MLS OF DARK YELLOW URINE FROM URINAL, FEET ELEVATED, PT DENIES FURTHER NEEDS, BED IN LOW POSITION, SIDE RAILS X 2, CALL LIGHT IN REACH, BED ALARM ON AND WORKING PROPERLY
--- NOTE | 2017-03-06 06:05 | NUR ---
PT RESTING WITH EYES CLOSED, AROUSES TO SOFT VERBAL STIMULATION, ADM 0600 MED PER MD ORDERS, SEE EMAR, PT DENIES NEEDS OR PAIN AT THIS TIME
--- NOTE | 2017-03-06 06:42 | NUR ---
SHIFT REPORT TO DAY SHIFT
--- NOTE | 2017-03-06 07:11 | NUR ---
LYING IN BED RESTING QUIELTY. OFFERS NO COMPLAINTS. NO S/SX OF DISTRESS. CALL LIGHT IN REACH. WILL CONTINUE TO MONITOR
[2017-03-06 08:00] VITALS: BP 104/53
--- NOTE | 2017-03-06 09:10 | NUR ---
administered morning meds without difficulty. offers no complaints. no s/sx of distress. continues on O2 @ 2L NC. call light in reach. will continue to monitor
--- NOTE | 2017-03-06 12:21 | NUR ---
SITTING UP IN BED EATING LUNCH. OFFERS NO COMPLAINTS. CALL LIGHT IN REACH. WILL CONTINUE TO MONITOR
--- NOTE | 2017-03-06 14:20 | NUR ---
LYING IN BED EYES CLOSED RESTING. APPROPRIATE RISE AND FALL OF CHEST. NO S/SX OF DISTRESS. CALL LIGHT IN REACH. WILL CONTINUE TO MONITOR.
--- NOTE | 2017-03-06 18:46 | NUR ---
LYING IN BED RESTING. OFFERS NO COMPLAINTS. [facility]
--- NOTE | 2017-03-06 21:34 | NUR ---
PT IS RESTING QUIETLY IN BED WITH EYES OPEN. ALERT AND ORIENTED X 3. NO ACUTE DISTRESS NOTED. TURNED AND REPOSITIONED IN BED Q2 HRS AND PRN. O2 IS ON @ 2LPM PER NC. DRESSINGS TO BUTTOCKS ARE CDI. CREAM APPLIED TO BLE PER MD ORDER. RIGHT ARM PICC LINE NOTED TO BE SLUGGISH IN BOTH LINES. HEPARIN LOCK FLUSH USED TO FLUSH LINES. SR'S ARE UP X 3 IN BED. CALL LIGHT AND BEDSIDE TABLE ARE WITHIN EASY REACH.
[2017-03-06 22:28] VITALS: BP 106/52
--- NOTE | 2017-03-07 01:25 | NUR ---
PT. IN BED ON FIRST STEP MATTRESS. EYES CLOSED AND RESP. DEEP AND EVEN. O2 VIA N/C AT 2L/MIN WITHOUT ANY S/S DISTRESS OBSERVED. CALL LIGHT WITHIN REACH.
--- NOTE | 2017-03-07 03:03 | NUR ---
RESTING IN BED WITH EYES CLOSED.
[2017-03-07 07:30] VITALS: BP 109/59
--- NOTE | 2017-03-07 07:50 | NUR ---
SITTING UP IN BED SET UP ORAL HYGIENE ON TRAY. PT PERFORMED ORAL HYGIENE. OFFERS NO COMPLAINTS. CALL LIGHT IN REACH. NO S/SX OF DISTRESS. WILL CONTINUE TO MONITOR
--- NOTE | 2017-03-07 14:02 | NUR ---
SITTING UP IN BED WATCHING TV. OFFERS NO COMPLAINTS. EMPTIED URINAL. CALL LIGHT IN REACH. WILL CONTINUE TO MONITOR
--- NOTE | 2017-03-07 16:18 | NUR ---
LYING IN BED RESTING. EASILY AROUSED WITH STIMULI. TURNED TO RIGHT SIDE. OFFERS NO COMPLAINTS. CALL LIGHT IN REACH. WILL CONTINUE TO MONITOR
--- NOTE | 2017-03-07 18:00 | NUR ---
RESTING QUIETLY.CL IN REACH.
--- NOTE | 2017-03-07 18:04 | NUR ---
LYING IN BED RESTING. NO S/SX OF DISTRESS. OFFERS NO COMPLAINTS. WILL CONTINUE TO MONITOR. CALL LIGHT IN REACH
--- NOTE | 2017-03-07 19:16 | NUR ---
PT. IN BED ON FIRST STEP MATTRESS. EYES CLOSED AND RESP. EVEN. CALL LIGHT WITHIN REACH.
--- NOTE | 2017-03-07 22:37 | NUR ---
PT IS RESTING QUIETLY IN BED WITH EYES OPEN. ALERT AND ORIENTED X 3. DENIES ACUTE DISCOMFORT AT THIS TIME. RIGHT ARM PICC LINE NOTED. O2 IS ON @ 2LPM PER NC. NO SOB NOTED. ROLANDO HEELS ARE BRIDGED UP ON PILLOWS. DRESSINGS TO LEFT HEEL AND BUTTOCKS ARE CDI. CELLULITIS TO ROLANDO LOWER LEGS IS IMPROVING. SR'S ARE UP X 3 IN BED. CALL LIGHT AND BEDSIDE TABLE ARE WITHIN EASY REACH.
--- NOTE | 2017-03-08 00:22 | NUR ---
RESTING IN BED WITH EYES CLOSED.
--- NOTE | 2017-03-08 04:16 | NUR ---
PT RESTING IN BED WITH EYES CLOSED. USING URINAL PRN.
[2017-03-08 05:43] LABS: BASOPHILS 0.3 % (0-2); EOSINOPHILS 0.3 % (0-7); HEMATOCRIT 27.2 % (42.0-54.0); HEMOGLOBIN 8.8 g/dL (13.5-17.5); IMMATURE GRANULOCYTES 0.3 % (0-5); LYMPHOCYTES 33.2 % (15-50); MCHC 32.4 g/dL (31.0-37.0); MCV 95.8 fL (80.0-100.0); MEAN PLATELET VOLUME 12.3 fL (7.4-10.4); MONOCYTES 5.9 % (2-11); PLATELET COUNT 133 10x3/uL (130-400); RBC 2.84 10x6/uL (4.20-6.10); RDW 18.5 % (11.5-14.5); WBC 2.9 10x3/uL (4.8-10.8)
--- NOTE | 2017-03-08 06:10 | NUR ---
PT RESTING IN BED WITH EYES OPEN. VOICED COMPLAINT OF NEEDING TO USE THE URINAL. HE HAD HIS HAND CLAMPED ON HIS PENIS, STATING: "IF I LET GO IT WILL GO EVERYWHERE. PT ASSISTED TO USE URINAL, AND GOWN AND PAD CHANGED. MERYL CARE GIVEN. PT ASSISTED TO REPOSITION IN BED.
[2017-03-08 06:29] LABS: CALC OSMOLALITY 281 mosm/kg (275-300); CALCIUM 8.1 mg/dL (8.5-10.1); CARBON DIOXIDE 28.1 mmol/L (21.0-32.0); CHLORIDE - SERUM 106 mmol/L (98-107); GLUCOSE 90 mg/dL (74-106); SODIUM 140 mmol/L (136-145); UREA NITROGEN 22 mg/dL (7-18); eGFR NON AFRICAN AMERICAN 76 mL/min (90-120)
--- NOTE | 2017-03-08 08:29 | NUR ---
PT RESTING IN BED WITH EYES OPEN CALL LIGHT IN REACH WILL MONITER
[2017-03-08 09:31] VITALS: BP 109/55
--- NOTE | 2017-03-08 17:56 | NUR ---
EATING SUPPER IN ROOM. DENIES NEEDS OR C/O. CALL LIGHT IN REACH
--- NOTE | 2017-03-08 19:45 | NUR ---
PM ROUNDS MADE, PT RESTING WITH EYES CLOSED, RESP QUIET, NO DISTRESS NOTED, LEFT UNDISTURBED AT THIS TIME, BED IN LOW POSITION, SIDE RAILS X 2, CALL LIGHT IN REACH
[2017-03-08 20:30] VITALS: BP 95/53
--- NOTE | 2017-03-08 20:30 | NUR ---
PT RESTING WITH EYES CLOSED, AROUSES TO SOFT VERBAL STIMULATION, VS OBTAINED, ASESSMENT PER FLOW SHEET, PT DENIES NEEDS OR PAIN AT THIS TIME
--- NOTE | 2017-03-08 22:14 | NUR ---
PT RESTING WITH EYES CLOSED, AROUSES TO SOFT VERBAL STIMULATION, ADM 2100 MEDS PER MD ORDERS, SEE EMAR, WITH FRESH H2O, PT DENIES NEEDS OR PAIN, BED IN LOW POSITION, SIDE RAILS X 2, CALL LIGHT IN REACH
--- NOTE | 2017-03-09 00:20 | NUR ---
PT RESTING WITH EYES CLOSED, RESP QUIET, NO DISTRESS NOTED, LEFT UNDISTURBED AT THIS TIME
--- NOTE | 2017-03-09 02:28 | NUR ---
PT FIELD TECH LIGHT, PT VOIDED 225 MLS OF DARK URINE IN URINAL BY SELF WITH NO DIFFICULTY, PT DENIES FURTHER NEEDS OR PAIN AT THIS TIME, BED IN LOW POSITION, SIDE RAILS X 2, CALL LIGHT IN REACH
--- NOTE | 2017-03-09 06:30 | NUR ---
PT AWAKE, KRISTIN, WAITER/WAITRESS TAVERN EMPTIED URINAL, PT NOTED TO BE DRY THIS MORNING, REFUSES TO CHANGE SHIRTS, ADM 0700 MED PER MD ORDERS, SEE EMAR WITH FRESH H20, PT DENIES FURTHER NEEDS
--- NOTE | 2017-03-09 07:00 | NUR ---
SHIFT REPORT TO DAY SHIFT
--- NOTE | 2017-03-09 07:46 | NUR ---
PT RESTING IN BED WITH EYES OPEN CALL LIGHT IN REACH WILL MONITER
--- NOTE | 2017-03-09 15:23 | NUR ---
PT RESTING IN BED WITH EYES OPEN CALL LIGHT IN REACH NO PROBLEMS WILL MONITER
--- NOTE | 2017-03-09 17:29 | NUR ---
PT RESTING IN BED WITH EYES OPEN CALL LIGHT IN REACH NO PROBLEMS WILL MONITER
[2017-03-09 20:25] VITALS: BP 90/48
--- NOTE | 2017-03-09 20:25 | NUR ---
PT NURSE SUBSTANCE ABUSE LIGHT, ASSESSMENT PER FLOW SHEET, VS OBTAINED, REQUESTED AND SERVED FRESH H20, DENIES FURTHER NEEDS AT THIS TIME
--- NOTE | 2017-03-09 21:40 | NUR ---
SUZANNA ABREU RN REPORTS TO ME SHE HAD PLACED PT ON BED MIMS, PT VOIDED AND HAD BM, SHE REMOVED PT FROM BEDPAN, DID PARTIAL BATH, CHANGED DRESSINGS ON BUTTOCK AND COCCYX
--- NOTE | 2017-03-09 22:16 | NUR ---
PT RESTING WITH EYES CLOSED, AROUSES TO SOFT VERBAL STIMULATION, ADM 2100 MEDS AND WAS ABLE TO FLUSH RED LINE WITH NO DIFFICULTY, PT REFUSES TO FINISH BED BATH, PT DENIES NEEDS AT THIS TIME, BED IN LOW POSITION, SIDE RAILS X 2, CALL LIGHT IN REACH
[2017-03-10] VITALS (10 sets, daily range): BP systolic 66–112; BP diastolic 51–59
--- NOTE | 2017-03-10 06:12 | NUR ---
PT RESTING WITH EYES CLOSED, AROUSES TO SOFT VERBAL STIMULATION, PT CLEANED UP WITH WET WARM WIPES, BLUE CHUX, PINK PAD AND DRAW SHEET CHANGED, PT REFUSES BRIEF, BLOOD DRAWN PER SUZANNA ABREU RN, ADM 0600 MED PER MD ORDERS, SEE EMAR, PT DENIES NEEDS OR PAIN AT THIS TIME, BED IN LOW POSITIO, SIDE RAILS X 2, CALL LIGHT IN REACH
--- NOTE | 2017-03-10 06:47 | NUR ---
SHIFT REPORT TO DAY SHIFT
[2017-03-10 06:59] LABS: BASOPHILS 0.4 % (0-2); EOSINOPHILS 0.4 % (0-7); HEMATOCRIT 25.4 % (42.0-54.0); HEMOGLOBIN 8.3 g/dL (13.5-17.5); IMMATURE GRANULOCYTES 0.4 % (0-5); LYMPHOCYTES 33.8 % (15-50); MCH 31.3 pg (26.0-34.0); MCHC 32.7 g/dL (31.0-37.0); MCV 95.8 fL (80.0-100.0); MEAN PLATELET VOLUME 12.1 fL (7.4-10.4); MONOCYTES 7.2 % (2-11); NEUTROPHILS 57.8 % (40-80); PLATELET COUNT 127 10x3/uL (130-400); RBC 2.65 10x6/uL (4.20-6.10); WBC 2.4 10x3/uL (4.8-10.8)
[2017-03-10 07:08] LABS: ANION GAP 11.3 mmol/L (8-16); CARBON DIOXIDE 27.2 mmol/L (21.0-32.0); CREATININE - SERUM 1.2 mg/dL (0.6-1.3); POTASSIUM - SERUM 3.5 mmol/L (3.5-5.1)
--- NOTE | 2017-03-10 07:45 | NUR ---
SITTING UP IN BED RESTING. PLEASANT AFFECT. C/O NOSE BEING VERY STUFFY AND FEELS HE CAN'T BREATH. WILL ADVISED DR. YEAGER OF THIS ISSUE. SETUP BREAKFAST TRAY. PT REQUESTED A PEPSI WILL ORDER PER REQUEST. OFFERS NO OTHER COMPLAINTS AT THIS TIME. CALL LIGHT IN REACH. WILL CONTINUE TO MONITOR
--- NOTE | 2017-03-10 08:39 | NUR ---
SITTING UP IN BED,DENIES NEEDS.
--- NOTE | 2017-03-10 13:03 | NUR ---
SITTING UP IN WHEELCHAIR VISITING WITH SON. OFFERS NO COMPLAINTS. CALL LIGHT IN REACH. WILL CONTINUE TO MONITOR
--- NOTE | 2017-03-10 14:08 | NUR ---
Nutrition Follow Up: Pt was in therapy at the time of RD visit. Pt interview deferred at this time. Pt is eating 54% meal avg on a reg mech soft diet. He is receiving Ensure TID and Nemesio BID. Noted pt with stage II and stage III ulcers. +BM 03/09/17. Meds noted including Megace, MV, Metformin, Bumex. Labs reviewed. Rec continue current diet, supplement regimen. Will continue to provide selective menus and honor food preferences. RD following.
--- NOTE | 2017-03-10 14:19 | NUR ---
Wound care reassessment: Pressure injuries are improving: Left buttock stage 2 pressure injury measures 1.5cm x 1.5cm. Wound bed is pink / periwound is intact. Little to no drainage. No odor (improved) Left buttock @ coccyx region stage 3 pressure injury measures 3.5cm x 1cm. Wound bed is 50% yellow 50% pink (improved) Left buttock @ sacral area stage 3 pressure injury measures 2.5cm x 1.5cm 50% yellow 50% pink (improved) Right gluteal fold - unstageable pressure injury measuring 2cm x 2cm. Wound bed is yellow necrotic tissue with brown necrotic tissue in center. (no change) (Recommend Santyl for this wound) Left heel has stage 2 pressure injury measuring 2cm x 4cm (improved) Mepilex was applied to wounds for protection. Pt needs to continue turning/repositioning q 2 hours while in bed and hourly when up in wheelchair. Also heels bridged while in bed. He is on an air overlay mattress. Wound care continues to follow.
--- NOTE | 2017-03-10 15:10 | NUR ---
SITTING UP IN BED RESTING COMFORTABLY. BLOOD TRANSFUSION STARTED BY JASIEL MESA 125ML/HR PRBC. CALL LIGHT IN REACH. WILL CONTINUE TO MONITOR PT.
--- NOTE | 2017-03-10 15:30 | NUR ---
RESTING COMFORTABLY IN BED OFFERS NO COMPLAINTS. VITALS STABLE. CALL LIGHT IN REACH WILL CONTINUE TO MONITOR.
--- NOTE | 2017-03-10 17:14 | NUR ---
SITTING UP IN BED RESTING COMFORTABLY. FAMILY AT BEDSIDE. VITALS STABLE. CALL LIGHT IN REACH. WILL CONTINUE TO MONITOR
--- NOTE | 2017-03-10 18:00 | NUR ---
SITTING UP IN BED FAMILY AT BEDSIDE. 2 UNIT OF PRBC'S STARTED BY BONITA WEATHERS. VITALS STABLE. OFFERS NO COMPLAINTS. WILL CONTINUE TO MONITOR.
--- NOTE | 2017-03-10 18:21 | NUR ---
NO S/SX OF DISTRESS. PT LAUGHING AND JOKING WITH FAMILY. VITALS STABLE. CALL LIGHT IN REACH. WILL CONTINUE TO MONITOR
--- NOTE | 2017-03-10 21:05 | NUR ---
ASSUMED CARE AND REPORT FROM MIGUEL ANGEL ABREU LPN
--- NOTE | 2017-03-10 21:30 | NUR ---
ROUNDS MADE, ASSESSMENT PER FLOW SHEET, VS OBTAINED, PT REPORTS THAT HE IS DRY, PT STATES "I'M JUST READY TO GET SOME REST", INFORMED PT THAT I WILL BE BACK IN A FEW MINUTES TO ADM 2100 MEDS, PT VERBALIZES UNDERSTANDING, BED IN LOW POSITION, SIDE RAILS X 2, CALL LIGHT IN REACH
--- NOTE | 2017-03-10 21:58 | NUR ---
LAST SET OF VS OBTAINED AFTER INFUSION OF BLOOD, ADM 2100 MEDS PER MD ORDERS, SEE EMAR, WITH FRESH H20, PT DENIES NEEDS OR PAIN AT THIS TIME
--- NOTE | 2017-03-10 23:26 | NUR ---
PT RESTING WITH EYES CLOSED, RESP QUIET, NO DISTRESS NOTED, LEFT UNDISTURBED AT THIS TIME
--- NOTE | 2017-03-11 01:05 | NUR ---
PT PROTOTYPE MODEL MAKER LIGHT, PT PLACED ON BED MIMS, PT HAD LARGE BROWN PASTY BM, PT CLEANED UP WITH WET WARM WIPES PER THIS RN AND IRMA CHEN RN, DRESSING ON COCCYX AND RIGHT GLUTEAL REMOVED DUE TO SOILAGE, SANTYL PLACED ON RIGHT GLUTEAL, CLEAN DRESSING APPLIED, CLEAN DRESSING TO COCCYX, NEW DRAW SHEET, PINK PAD AND BLUE CHUX PLACED, FRESH TOP SHEET AND BLANKET OVER PT, SHIRT CHANGED, PT STATES "THAT FEELS BETTER", PT DENIES FURTHER NEEDS, BED IN LOW POSITION, SIDE RAILS X 2, CALL LIGHT IN REACH
--- NOTE | 2017-03-11 03:30 | NUR ---
PT RESTING WITH EYES CLOSED, RESP QUIET, NO DISTRESS NOTED, LEFT UNDISTURBED AT THIS TIME, EMPTIED 300 MLS OF DARK YELLOW URINE FROM URINAL, BED IN LOW POSITION, SIDE RAILS X 2, CALL LIGHT IN REACH
--- NOTE | 2017-03-11 06:27 | NUR ---
PT AWAKE, ADM 0600 MEDS AND FLUSHED PICC LINE WITH NO DIFFICULTY, EMPTIED 250 MLS OF DARK YELLOW URINE FROM URINAL, PT DENIES ANY WETNESS, FRESH H20 SERVED, DENIES FURTHER NEEDS OR PAIN, BED IN LOW POSITION, SIDE RAILS X 2, CALL LIGHT IN REACH
--- NOTE | 2017-03-11 06:44 | NUR ---
SHIFT REPORT TO DAY SHIFT
[2017-03-11 07:50] LABS: BASOPHILS 0.3 % (0-2); EOSINOPHILS 0.3 % (0-7); IMMATURE GRANULOCYTES 0.6 % (0-5); LYMPHOCYTES 35.5 % (15-50); MCH 30.4 pg (26.0-34.0); MCHC 33.5 g/dL (31.0-37.0); MEAN PLATELET VOLUME 11.6 fL (7.4-10.4); MONOCYTES 7.3 % (2-11); PLATELET COUNT 137 10x3/uL (130-400); RDW 19.7 % (11.5-14.5)
[2017-03-11 07:54] LABS: HEMATOCRIT 31.6 % (42.0-54.0); HEMOGLOBIN 10.6 g/dL (13.5-17.5); MCV 90.5 fL (80.0-100.0); RBC 3.49 10x6/uL (4.20-6.10); WBC 3.4 10x3/uL (4.8-10.8)
--- NOTE | 2017-03-11 08:00 | NUR ---
SHIFT ASSMT COMPLETED.
[2017-03-11 08:08] LABS: CALC OSMOLALITY 275 mosm/kg (275-300); CALCIUM 7.7 mg/dL (8.5-10.1); CARBON DIOXIDE 25.9 mmol/L (21.0-32.0); CHLORIDE - SERUM 103 mmol/L (98-107); GLUCOSE 94 mg/dL (74-106); POTASSIUM - SERUM 3.5 mmol/L (3.5-5.1); SODIUM 136 mmol/L (136-145); UREA NITROGEN 25 mg/dL (7-18); eGFR NON AFRICAN AMERICAN 76 mL/min (90-120)
[2017-03-11 08:30] VITALS: BP 108/64
--- NOTE | 2017-03-11 12:00 | NUR ---
MEAL TRAY GIVEN.
--- NOTE | 2017-03-11 16:00 | NUR ---
DENIES NEEDS.CL IN REACH.
--- NOTE | 2017-03-11 19:12 | NUR ---
PT. IN BED ON FIRST STEP MATTRESS. O2 ON VIA N/C WITHOUT ANY S/S DISTRESS OBSERVED. NO VOICED NEEDS AT THIS TIME AND HIS CALL LIGHT IS WITHIN REACH.
--- NOTE | 2017-03-11 19:45 | NUR ---
CHECK VITAL SIGNS, PT'S BP LOW, 109/53, WILL MONITOR CLOSELY.
--- NOTE | 2017-03-11 21:39 | NUR ---
HELD BP MEDS, DUE TO PT LOW BP.
--- NOTE | 2017-03-11 22:10 | NUR ---
RECHECK PT'S BP-117/58.
[2017-03-12 00:57] VITALS: BP 109/53
--- NOTE | 2017-03-12 03:03 | NUR ---
REST QUIETLY IN BED, EYE CLOSE, BED LOW, CALL LIGHT WITHIN REACH.
[2017-03-12 07:21] LABS: BASOPHILS 0.3 % (0-2); EOSINOPHILS 0.3 % (0-7); HEMATOCRIT 32.2 % (42.0-54.0); HEMOGLOBIN 10.4 g/dL (13.5-17.5); IMMATURE GRANULOCYTES 0.8 % (0-5); MCH 29.8 pg (26.0-34.0); MCHC 32.3 g/dL (31.0-37.0); MCV 92.3 fL (80.0-100.0); MONOCYTES 9.6 % (2-11); RBC 3.49 10x6/uL (4.20-6.10); RDW 19.5 % (11.5-14.5); WBC 3.8 10x3/uL (4.8-10.8)
[2017-03-12 07:22] LABS: PLATELET COUNT 166 10x3/uL (130-400)
[2017-03-12 07:33] LABS: ANION GAP 9.9 mmol/L (8-16); CALCIUM 7.6 mg/dL (8.5-10.1); CARBON DIOXIDE 27.4 mmol/L (21.0-32.0); CREATININE - SERUM 1.1 mg/dL (0.6-1.3); POTASSIUM - SERUM 3.3 mmol/L (3.5-5.1)
[2017-03-12 08:00] VITALS: BP 99/52
--- NOTE | 2017-03-12 08:10 | NUR ---
SITTING UP IN BED.EATING BREAKFAST.CL IN REACH.
--- NOTE | 2017-03-12 13:08 | NUR ---
PT RESTING IN BED WITH EYES OPEN CALL LIGHT IN REACH NO PROBLEMS WILL MONITER
--- NOTE | 2017-03-12 16:49 | NUR ---
REFERRAL FAXED TO [facility] FOR POSSIBLE ADMISSION ON 03/16/17, PER PATIENT AND FAMILY REQUEST
--- NOTE | 2017-03-12 18:05 | NUR ---
PT RESTING IN BED WITH EYES OPEN CALL LIGHT IN REACH NO PROBLEMS WILL MONITER
--- NOTE | 2017-03-12 20:52 | NUR ---
ASSISTED PT WITH BEDSIDE COMMODE, HAS BM, CLEAN ADN CHANGE MEPILEX DRESSING IN BUTTOCK.
[2017-03-13 01:07] VITALS: BP 106/51
--- NOTE | 2017-03-13 04:22 | NUR ---
REST IN BED, EYE CLOSE, CALL LIGHT WITHIN REACH.
--- NOTE | 2017-03-13 07:36 | NUR ---
PT RESTING IN BED WITH EYES OPEN CALL LIGHT IN REACH NO PROBLEMS WILL MONITER
[2017-03-13 08:00] VITALS: BP 132/99
--- NOTE | 2017-03-13 16:52 | NUR ---
PT RESTING IN BED WITH EYES OPEN CALL LIGHT IN REACH NO PROBLEMS WILL MONITER
--- NOTE | 2017-03-13 18:21 | NUR ---
JUST FINISHED SUPPER. DENIES NEEDS. CALL LIGHT IN REACH
--- NOTE | 2017-03-13 19:35 | NUR ---
SIT UP IN BED AND WATCH FOOT BALL GAME IN TV.
[2017-03-14 00:18] VITALS: BP 114/61
--- NOTE | 2017-03-14 02:21 | NUR ---
REST IN BED, EYE CLOSE, CALL LIGHT WITHIN REACH.
--- NOTE | 2017-03-14 03:56 | NUR ---
PT RECEIVING BED BATH AT THIS TIME DUE TO INCONT EPISODE OF BOWEL. WCTM.
--- NOTE | 2017-03-14 07:26 | NUR ---
PT IN BED WITH EYES CLOSED AND CHEST RISING. NO SIGN/SYMPTOMS OF DISTRESS NOTED. EASILY AROUSED TO VERBAL STIMULI. NO CONCERNS NOTED AT THIS TIME. CALL LIGHT IN REACH.
[2017-03-14 07:49] VITALS: BP 121/57
--- NOTE | 2017-03-14 12:08 | NUR ---
PT IN BED WITH EYES OPEN WATCHING TV. NO CONCERNS MADE KNOWN. CALL LIGHTS IN REACH.
--- NOTE | 2017-03-14 18:10 | NUR ---
SITTING UP EATING SUPPER. DENIES NEEDS. CALL LIGHT IN REACH
--- NOTE | 2017-03-14 18:17 | NUR ---
PT IN BED WITH EYES CLOSED AND CHEST RISING. SON JUST LEFT BEDSIDE FOR THE NIGHT. NO CONCERNS NOTED. CALL LIGHT IN REACH.
--- NOTE | 2017-03-14 19:50 | NUR ---
REST IN BED, EYE OPEN, DENIES NEEDS.
--- NOTE | 2017-03-14 23:10 | NUR ---
PT C/O BED UNCOMFORTABLE, AND CAUSE BACK PAIN, TURN PT TO RIGHT SIDE, AND PT STATE HE FEEL MORE COMFORTABLE.
[2017-03-14 23:44] VITALS: BP 116/59
--- NOTE | 2017-03-15 02:46 | NUR ---
PT RESTING, EYES CLOSED. BED LOW. CLIN REACH.
[2017-03-15 04:16] LABS: BASOPHILS 0.2 % (0-2); EOSINOPHILS 0 % (0-7); HEMATOCRIT 31.6 % (42.0-54.0); HEMOGLOBIN 10.6 g/dL (13.5-17.5); IMMATURE GRANULOCYTES 0.4 % (0-5); LYMPHOCYTES 29.2 % (15-50); MCH 31.1 pg (26.0-34.0); MCHC 33.5 g/dL (31.0-37.0); MCV 92.7 fL (80.0-100.0); MEAN PLATELET VOLUME 11.3 fL (7.4-10.4); MONOCYTES 13.2 % (2-11); RBC 3.41 10x6/uL (4.20-6.10); RDW 18.9 % (11.5-14.5); WBC 4.6 10x3/uL (4.8-10.8)
[2017-03-15 04:17] LABS: PLATELET COUNT 217 10x3/uL (130-400)
[2017-03-15 04:27] LABS: CALC OSMOLALITY 277 mosm/kg (275-300); CALCIUM 7.4 mg/dL (8.5-10.1); CARBON DIOXIDE 26.9 mmol/L (21.0-32.0); CHLORIDE - SERUM 102 mmol/L (98-107); GLUCOSE 114 mg/dL (74-106); POTASSIUM - SERUM 3.2 mmol/L (3.5-5.1); SODIUM 137 mmol/L (136-145); UREA NITROGEN 22 mg/dL (7-18); eGFR NON AFRICAN AMERICAN 76 mL/min (90-120)
--- NOTE | 2017-03-15 08:18 | NUR ---
SITTING UP EATING BREAKFAST. DENIES NEEDS. CALL LIGHT IN REACH
[2017-03-15] MEDS ORDERED: K-TAB10 MEQ PO (08:41)
--- NOTE | 2017-03-15 08:42 | RHP ---
PATIENT: MISTI EASON MEDICAL RECORD: [id number] ACCOUNT: [id number] LOCATION:[facility]1114 : 35 ADMISSION DATE: 02/26/17 REHABILITATION HISTORY AND PHYSICAL EXAMINATION POST ADMISSION PHYSICIAN EXAMINATION Post-admission Physical Examination and History and Physical DATE OF ADMISSION: 02/26/2017 ADMITTING DIAGNOSES: Critical illness myopathy. HISTORY OF PRESENT ILLNESS: The patient is admitted to the inpatient rehabilitation for critical illness myopathy. He is an 81-year-old gentleman who is admitted for progressive weakness, dyspnea and bronchitic type cough, lower extremity edema, abdominal swelling, he is found to have a small-bowel obstruction resulting in NG tube placement. During this hospital stay, he had decreased urinary output and has been seen by the urologist and was found to have renal failure. He had fallen 4 days prior to this admission, was seen in the ER with lumbar scan showing degenerative changes with no acute fractures. He stated that his legs have gotten very swollen and tender and his knees were hurting very badly and he was having trouble with balance. He has also been found to have a DVT and has had an IVC filter placed. He has stayed in the ICU from 02/13/2017 to 02/24/2017 with respiratory failure requiring BiPAP and Vapotherm and has been weaned down to 5 liters on Oxymizer. At this time, he was noted to have proximal weakness due to his length of stay here in the hospital. Also noted, he has some pressure ulcers due to debility and has been placed on an air overlay mattress. He lives at home with his , was moderately independent with a rolling walker prior to this and independent with ADLs. He is currently max assist to total assist with his mobility. He is set up for max assist with his ADLs. He plans to return home, hopefully get back to his prior medical level of functioning if possible. COMORBIDITIES: In this patient include oropharyngeal dysphagia, COPD, coronary artery disease, peripheral arterial disease, acute kidney injury on top of chronic kidney disease, allergic rhinitis. He has got a history of tobacco use, hypertension, electrolyte abnormalities, diabetes. He has got a history of aspiration pneumonia, history of acute respiratory distress syndrome, oral candidiasis, ileus, renal artery stenosis, acute blood loss anemia, metabolic encephalopathy, alcohol use in the past. PAST MEDICAL HISTORY: Significant for glaucoma, COPD, degenerative joint disease, chronic kidney disease, anemia, diabetes, peripheral vascular disease, coronary artery disease, AAA, and hypertension, past smoker, and history of alcohol abuse. PAST SURGICAL HISTORY: Includes angioplasty with stenting and AAA repair and also placement of an IVC filter. ALLERGIES: PENICILLIN. CURRENT MEDICATIONS: Include a Duragesic patch to apply q.72 hours. He is on magic mouthwash at this time. He is on Timoptic eyedrops, verapamil 240 mg daily, potassium 20 mEq daily, multivitamin daily, metformin 500 mg b.i.d. with meals, aspirin 325 daily. He is on Eliquis 2.5 mg b.i.d., Minipress 5 mg b.i.d. HISTORY AND PHYSICAL [id number] MISTI EASON He is on Xalatan eye drops, hydrocodone 1 tab q.4 hours p.r.n. breakthrough pain, Flexeril 10 mg t.i.d. p.r.n. spasms, Bumex 1 mg b.i.d., Tenormin 100 mg b.i.d., and polyethylene glycol 17 grams in 8 ounces of water daily. HABITS: Does have a history of tobacco and alcohol use. FAMILY HISTORY: Noncontributory. SOCIAL HISTORY: The patient hopes to return back home and get back to his prior level of functioning. REVIEW OF SYSTEMS: GENERAL: He generally does complain of weakness and fatigue. HEENT: Denies cold, cough or congestion at this time. CARDIOVASCULAR: Denies any chest pain. LUNGS: Does complain of occasional shortness of breath. ABDOMEN: Does complain of resolving abdominal pain. PHYSICAL EXAMINATION: VITAL SIGNS: Stable. He is afebrile. GENERAL: A somewhat obese gentleman in no acute distress, alert upon exam. HEENT: Normocephalic and atraumatic. Mucosa moist. NECK: Supple. No lymphadenopathy. LUNGS: Clear at this time. HEART: Regular rate and rhythm. ABDOMEN: Soft. EXTREMITIES: Does have appropriate tenderness. EXTREMITIES: He does have some peripheral edema. NEUROLOGIC: Seems intact. LABORATORY DATA: His white count is 4.8, H&H of 7.7 and 23.9 and platelet count is 183. His sodium is 143, potassium 3.1, BUN and creatinine 45 and 0.9 and blood sugar is noted to be 89. ASSESSMENT: This is an 81-year-old gentleman who is admitted to the rehab with a working diagnosis of critical illness myopathy. The patient has potential to make improvement. We instituted the following multidisciplinary therapies including to, but not limited to physical, occupational, respiratory, speech, nutritional services, prosthetics and orthotics. Given his complex condition and risk for more complications, rehabilitation services cannot be provided at a low level of care such as a residential facility. PLAN: 1. Admit to [facility] rehab for intensive inpatient therapy to include the following disciplines: A. Physical therapy to improve gait, all transfer skills and bed mobility to a modified independent level. B. Occupational therapy to improve activities of daily living to a modified independent level. C. Case management to assist with discharge planning and placement options. D. Nutrition to assist with nutritional needs. E. Rehabilitation nursing to assist in monitoring the patient's underlying medical conditions and to assist with any type of bowel or bladder management. 2. The patient's current medication and medical care will be continued. 3. The patient will be placed on standard fall precautions. HISTORY AND PHYSICAL [id number] MISTI EASON 4. Watch his H&H closely. 5. I am going to go ahead and adjust his potassium dosage to bring this up. 6. We will discuss this patient with care team staff end of next week and will see him back on Wednesday morning early or will see earlier if needed. TRANSINT:[id number] Voice Confirmation ID: [id number] DOCUMENT ID: [id number] ROSEANNE notes whether there has been none or any medical/functional change since admission: - See admit NN for complete body audit note for all documented wounds. ROSEANNE attests patient continues to be appropriate for IRF: - Continues to be appropriate. LOKI YEAGER MD at [id number] CC: [id number] DICTATION DATE: 02/27/17 0930 SENIOR IT SPECIALIST: 02/27/17 1013 ADM IN [facility] [address] [id number]
[2017-03-15] MEDS ORDERED: NORCO 7.5/325 T1 TA1 PO (08:44)
[2017-03-15 09:56] VITALS: BP 117/66
--- NOTE | 2017-03-15 11:30 | NUR ---
PATIENT IN REHAB ROOM. WORKING WITH OCCUPATIONAL THERAPIST. DENIES ANY PAIN/DISC AT THIS TIME
--- NOTE | 2017-03-15 15:38 | NUR ---
DRESSING CHANGED TO LEFT HEEL, RIGHT AND LEFT BUTTOCKS. MEPILEX DRESSING AND SANTYLE APPLIED AFTER CLEANING WITH WOUND CLEANSER.
--- NOTE | 2017-03-15 19:30 | NUR ---
PT IS RESTING IN BED WITH EYES OPEN. ALERT AND ORIENTED X 3. HE DENIES ACUTE DISCOMFORT AT THIS TIME. USING URINAL PRN. 200CC EMPTIED AT THIS TIME. O2 IS ON @ 2LPM PER NC. NO SOB NOTED. RIGHT ARM PICC LINE NOTED. DRESSINGS TO ROLANDO BUTTOCKS AND LEFT HEEL ARE CDI. CHANGED ON DAY SHIFT TODAY. PT RESTING ON A 1ST STEP MATTRESS. HE STATES HE WILL BE LEAVING US TOMORROW. SR'S ARE UP X 3 IN BED. CALL LIGHT AND BEDSIDE TABLE ARE WITHIN EASY REACH.
--- NOTE | 2017-03-15 20:00 | NUR ---
PT. IN BED ON AIR MATTRESS. EYES CLOSED AND RESP. EVEN. O2 ON AT 2L/MIN VIA N/C WITHOUT ANY S/S DISTRESS OBSERVED. CALL LIGHT WITHIN REACH.
--- NOTE | 2017-03-15 21:12 | NUR ---
PT IS RESTING QUIETLY IN BED WATCHING TV. NO NEEDS VOICED.
[2017-03-15 21:44] VITALS: BP 108/56
--- NOTE | 2017-03-16 00:01 | NUR ---
PT RESTING IN BED WITH EYES OPEN. VOICED COMPLAINT OF FEELING UNCOMFORTABLE IN BED. ASSISTED TO REPOSITION. RELIEF VOICED.
--- NOTE | 2017-03-16 01:41 | NUR ---
RESTING IN BED WITH EYES CLOSED.
--- NOTE | 2017-03-16 04:58 | NUR ---
RESTING IN BED WITH EYES CLOSED.
--- NOTE | 2017-03-16 06:37 | NUR ---
PT REFUSED BATH, DRESSING CHANGES, AND BLOOD DRAW THIS AM.
[2017-03-16 07:55] VITALS: BP 135/68
--- NOTE | 2017-03-16 08:00 | NUR ---
SITTING UP IN BED.1ST STEP AIR MATTRESS INFLATED.CL IN REACH.BREAKFAST GIVEN.STATES CAN NOT FEED HIMSELF.STATES HIS SON WILL BE HERE.NO PROBLEM NOTED WITH HIM USING A URINAL.AND ALSO INDEPENDENT IN DRINKING A COKE.FIXER BOARDING ROOM SENT TO FEED HIM.
[2017-03-16 10:42] LABS: ANION GAP 13.3 mmol/L (8-16); CALCIUM 7.8 mg/dL (8.5-10.1); CARBON DIOXIDE 24.3 mmol/L (21.0-32.0); CREATININE - SERUM 1.1 mg/dL (0.6-1.3); POTASSIUM - SERUM 3.6 mmol/L (3.5-5.1)
--- NOTE | 2017-03-16 10:54 | NUR ---
Nutrition Follow Up: Pt reported that his appetite is poor. He said that he has been drinking Nemesio and Ensure. Spoke with pt and family member regarding importance of Nemesio and wound healing. Family member asked where it could be purchased; pt stated that he will continue to drink Nemesio until his wounds heal. Pt is eating 75% meal avg on a regular [facility] soft diet. He is receiving Ensure TID and Nemesio BID. +BM 03/13/17. Meds noted including ELAYNE Love. Labs reviewed. Rec continue current diet, supplement regimen. RD following.
--- NOTE | 2017-03-16 12:00 | NUR ---
PLAN FOR DC TO [facility] TODAY.
--- NOTE | 2017-03-16 14:46 | NUR ---
PATIENT DISCHARGING TO [facility]. NO DME OR HOME HEALTH NEEDED AT THIS TIME. AN APPOINTMENT WITH DR. LUCAS WILL BE MADE AT TIME OF DISCHARGE FROM FACILITY. PATIENT CHOICE FORM FOR SNF AND [facility] FORM SIGNED, EXPLAINED AND FILED IN CHART. FAMILY NOTIFIED OF DISCHARGE.
--- NOTE | 2017-03-16 16:00 | NUR ---
WAITING ON PICK-UP.
--- NOTE | 2017-03-16 17:00 | NUR ---
[facility] ON DELAY UNTIL XRAY OF RIGHT WRIST TAKEN AND CLARIFY NO FX'S.STAT XRAY RT WRIST ORDERED.RAD NOTIFIED.
--- NOTE | 2017-03-16 18:18 | NUR ---
STILL AWAITING RESULTS.WILL HAVE TO HOLD DC TODAY.
--- NOTE | 2017-03-16 19:28 | NUR ---
DR YEAGER CALLED GIVEN INFO ON PTS WRIST XRAY. ORDERED TO CONSULT ORTHO TO SEE PT.
[2017-03-16 19:31] VITALS: BP 99/52
--- NOTE | 2017-03-16 19:45 | NUR ---
PT. LYING IN BED ON FIRST STEP MATTRESS. HOB UP FOR COMFORT AND HIS RUE ELEVATED UP ON PILLOW. NO VOICED NEEDS AT THIS TIME AND HIS CALL LIGHT IS WITHIN REACH.
--- NOTE | 2017-03-16 19:48 | NUR ---
DR PENA CALLED BACK. WILL SEE PT IN AM.
--- NOTE | 2017-03-16 20:30 | NUR ---
PT RESTING IN BED WITH EYES OPEN. ALERT AND ORIENTED X 3. RIGHT ARM ELEVATED UP ON PILLOW. PT REQUESTED A ICE PACK FOR IT, BUT THEN REFUSED TO WEAR IT BECAUSE IT WAS COLD. AWAITING [employer]RAVER [employer] TO DELIVER A SPLINT FROM [employer]. PT DENIES ANY RELIEF FROM PAIN MEDICATION YET. WILL CONTINUE TO MONITOR.
--- NOTE | 2017-03-17 00:01 | NUR ---
PT IS RESTING IN BED WITH EYES CLOSED. NO ACUTE DISTRESS NOTED AT THIS TIME.
--- NOTE | 2017-03-17 03:11 | NUR ---
PT VOICED COMPLAINT OF BILAT ARM PAIN LEVEL OF 7. MEDICATED PER SEP.
--- NOTE | 2017-03-17 05:45 | NUR ---
PT IS RESTING IN BED WITH EYES OPEN. NOTED TO BE INC. OF A LARGE AMOUNT OF URINE. PT STATED HE COULD NOT WAIT TO USE URINAL, SO HE JUST PEED IN THE BED. INC. CARE AND LINEN CHANGE DONE. PT ENCOURAGED TO CALL NURSE FOR ASSISTANCE IF HE WAS HAVING TROUBLE USING THE URINAL. HE VOICED VERBAL UNDERSTANDING AND SAID HE WOULD TAKE ME UP ON THAT. DRESSING TO RIGHT GLUTEAL CLEFT CHANGED PER ORDERS. SMALL AMOUNT OF YELLOW FOUL SMELLING DRAINAGE NOTED.
--- NOTE | 2017-03-17 08:00 | NUR ---
SHIFT ASSMT COMPLETED;RT WRIST IMMOBILIZER ON AND ELAVATED ON PILLOW.BREAKFAST GIVEN.CL IN REACH.POS UP IN BED WITH HEELS FLOATED.
[2017-03-17 08:23] VITALS: BP 120/61
--- NOTE | 2017-03-17 09:30 | NUR ---
[facility] HERE FOR;FITTED FOR A BOA THERMAL.PLACED ON RT WRIST.
--- NOTE | 2017-03-17 10:01 | NUR ---
DR. PENA 03/31/17 @ 3:00, FOLLOW UP FOR FX. WRIST
[2017-03-17] MEDS ORDERED: DURAGESIC1 PATCH .1 (13:19)
--- NOTE | 2017-03-17 13:50 | NUR ---
RHONA'D IN CARE OF [facility].RT WRST BOA SPLINT IN PLACE.
== END 2017-03-17 13:50 | DRG 91 ==
LOC: D.REHAB 16:03 → D.SDCHOLD 03-01 15:44 → D.REHAB 03-01 15:45
PROVIDERS: ADMIT Emergency Medicine
DX: G72.81 Critical illness myopathy (principal); G93.41 Metabolic encephalopathy; N17.9 Acute kidney failure, unspecified; B37.0 Candidal stomatitis; J44.1 Chronic obstructive pulmonary disease with (acute) exacerbation; R53.1 Weakness; R13.12 Dysphagia, oropharyngeal phase; I25.10 Atherosclerotic heart disease of native coronary artery without angina pectoris; I73.9 Peripheral vascular disease, unspecified; E11.22 Type 2 diabetes mellitus with diabetic chronic kidney disease; I12.9 Hypertensive chronic kidney disease with stage 1 through stage 4 chronic kidney disease, or unspecified chronic kidney disease; N18.9 Chronic kidney disease, unspecified; E87.8 Other disorders of electrolyte and fluid balance, not elsewhere classified; Z87.891 Personal history of nicotine dependence

== ENCOUNTER 2017-03-19 15:51 | Inpatient (IN) | payer MEDICARE, OTHER ==
--- NOTE | 2017-03-19 15:25 | NUR ---
PT ARRIVED TO FLOOR VIA EMS, PT IS ALERT AND ORIENTED WITH THE EXCEPTION OF KNOWING THE MONTH AND PRESIDENT. VS ARE WNL. JOVANNI ENTERPRISE ANALYST SITED PT PIV TO LEFT FA 20 G X1 STICK. EXPLAINED TO PT THAT HE HAS BEEN TRANSFERRED TO HOSPITAL TO BE ON INPATIENT HOSPICE. PT QUESTIONED THIS. ASKED PT IF HE WANTED TO BE A DNR AND BE ON HOSPICE PT REPLIED NO, THAT HE WANTED CPR AND THOUGHT HE WAS IN THE HOSPITAL FOR PAIN CONTROL. HOSPICE NURSE AD HERE AND SAYS THAT PT SIGNED LEGALS FOR DNR AND HOSPICE PLACEMENT AROUND 1200. PT IS STILL TELLING ME AT THIS TIME THAT HE DOES IN FACT WANT CPR AND DOES NOT WANT TO BE ON HOSPICE ONLY PAIN CONTROL. DR ARANA HAS BEEN NOTIFIED AND DR ARANA ADMITTED HIM TO INPATIENT "PAIN CONTROL". ORDERS OBTAINED AND VERIFIED WITH DR ARANA. FAMILY IS AT BEDSIDE WITH PT, WILL ADMIT FOR PAIN CONTROL. PT WILL STAY FULL CODE. HOSPICE AWARE.
[~2017-03-19 15:51] MED LIST changes: +DURAGESIC1 PATCH .1
--- NOTE | 2017-03-19 16:31 | NUR ---
FIRST STEP OVERLAY ORDER FAXED TO [facility] AND CALLED SEFERINO TO NOTIFY HER
[2017-03-19 16:38] VITALS: BP 110/61; BMI 23.2
--- NOTE | 2017-03-19 16:55 | NUR ---
EXPLAINED TO PT THAT DR ARANA HAS ORDERED FOR A HAWLEY TO BE PLACED, PT IS REFUSING TO HAVE HAWLEY CATH PLACED STATES HE HAS BEEN URINATING INTO URINAL AND CAN KEEP DOING IT. ASKED PT IF HE NEEDED SOME PAIN MEDICATION FOR HIS PAIN, PT REPLIED HE DID NOT NEED ANY RIGHT NOW. PT WANTS TO WAIT TO APPLY FIRST STEP OVERLAY UNTIL AFTER HIS FIRST DOSE OF PAIN MEDICATION HAS BEEN GIVEN. TOLD PT AND FAMILY TO LET STAFF KNOW WHEN HE IS READY FOR PAIN MEDICATION. ANSELMO IS ON FAMILY AT BEDSIDE
--- NOTE | 2017-03-19 17:17 | NUR ---
PT REFUSED TO EAT DINNER STILL REFUSING PAIN MEDICATION
--- NOTE | 2017-03-19 18:24 | NUR ---
PT SITTING UP IN BED SLEEPING RR EVEN AND UNLABORED NO S/S DISTRESS NOTED. SON IS AT BEDSIDE.
[2017-03-19 19:00] VITALS: BP 88/48
--- NOTE | 2017-03-19 19:00 | NUR ---
INTRODUCED MYSELF TO PT RN FOR TONIGHT UNTIL 11PM. PT IS LYING BACK IN BED RESTING QUIETLY. PT DENIES ANY CURRENT PAIN OR NEEDS AND VERBALIZED UNDERSTANDING OF CL AND TO USE IF NEEDING ANYTHING. CL IN REACH, BED IN LOWEST, SIDE RAILS X2. WILL CPOC.
[2017-03-20] VITALS: BP 104/57
[2017-03-20 04:00] VITALS: BP 110/43
[2017-03-20 08:49] VITALS: BP 104/61; BP 111/71
--- NOTE | 2017-03-20 09:42 | NUR ---
ASHANTI FREITAS INFORMED ME PT HAD TEMP OF 101.4. PAGED DR. ARANA TO INFORM HIM OF THIS. WILL AWAIT NEW ORDERS.
[2017-03-20 10:00] VITALS: BMI 21.8
--- NOTE | 2017-03-20 10:31 | NUR ---
CALLED DR. ABRAMS OTHER LINE WITH NO ANSWER. LEFT VOICEMAIL FOR DR. ARANA TO CALL BACK WHEN HE CAN. PTS SKIN IS WARM WITH TEMP OF 101.4. WILL AWAIT CALLBACK.
--- NOTE | 2017-03-20 13:09 | NUR ---
DR. JOSE ALBERTO PRIETO NURSE CALLED. INFORMED HER OF SITUAITON AND PT HAVING TEMP. NEW ORDERS RECEIVED.
[2017-03-20 13:18] VITALS: BP 109/54
--- NOTE | 2017-03-20 13:36 | NUR ---
I WAS GIVING PT TYLENOL PRN ORDERED FOR FEVER (101.4) PT STATED HE WAS "HOT". PTS THERMOSTAT IS SET AT 85 DEGREES. TURNED PTS AC ON AND PLACED COOL WASH CLOTHE ON PTS FOREHEAD FOR COMFORT. OBTAINED URINE SPECIMEN ORDERED FOR UA. INSTRUCTED PT TO USE CALL LIGHT IF NEEDING ASSISTANCE FROM STAFF, PT AGREES. WILL CONTINUE TO MONITOR.
--- NOTE | 2017-03-20 14:58 | NUR ---
1446- RECEIVED CALL FROM DR. JOSE ALBERTO PRIETO NURSE WITH NEW ORDERS.
--- NOTE | 2017-03-20 15:42 | NUR ---
FAMILY MEMBERS ARE AT BEDSIDE COMFORTING PT. THIS NURSE PLACED SECOND COOL WASH CLOTHE ON PTS FOREHEAD FOR COMFORT (PT HAS BEEN RUNNING TEMP AND HAS BEEN HOT TO TOUCH). CALL LIGHT IS IN REACH. WILL CONTINUE TO MONITOR.
--- NOTE | 2017-03-20 17:32 | NUR ---
THIS NURSE IS ASSITING PT EAT DINNER. PT IS MORE ALERT AT THIS TIME. PT IS ABLE TO LET ME KNOW WHEN HE IS READY FOR A BITE OF DINNER. PT IS REQUESTING ME RE-POSITION RIGHT FOOT. WILL CONTINUE TO MONITOR AND FEED PT WHEN READY (PT REQUESTED A BREAK).
--- NOTE | 2017-03-20 18:01 | NUR ---
UPON ASSISTING PT WITH EATING DINNER, PT IS MORE ALERT AND ORIENTED. PT STATES TO ME WHERE HE IS AT ([facility] [facility]) AND STATES IT IS 2017. PT ALSO READ THE CLOCK AND TOLD ME THE TIME.
--- NOTE | 2017-03-20 19:22 | NUR ---
RECIEVED UP IN BED WITH EYES CLOSED. NO S/S OF DISTRESS OBSERVED. EASILY AROUSES WITH VERBAL STIMULI. O2@2 LITERS PER N/C. PU BEHIND LEFT EAR. TUBING REMOVED FROM EAR AND TAPED TO SIDE OF FACE. AREA CLEANSED AND DRY DRESSING PLACED TO PREVENT PRESSURE, SALINE LOCK TO LEFT ARM PATENT . NO REDNESS OR SWELLING TO AREA, DRESSING CLEAN, DRY AND INTACT. F/C PATENT WITH CLEAR YELLOW URINE DRAIONING TO BEDSIDE DRAINAGE SYSTEM. REPORTED TEMP. THIS AM. TEMP 97.3 AT THIS TIME. CALL LIGHT AND OVERBED TABLE IN REACH.
[2017-03-20 20:23] VITALS: BP 104/56
[2017-03-21 01:29] VITALS: BP 125/72
[2017-03-21 05:44] VITALS: BP 126/66
--- NOTE | 2017-03-21 07:40 | NUR ---
AM ROUNDING- RECEIVED REPORT FROM ASSISTANT PROFESSOR OF PSYCHOLOGY NURSE SUZANNA. PT IS CURRENTLY SITTING UP IN BED WITH EYES OPEN RESTING. PT IS ALERT TO SELF, SLIGHTLY CONFUSED TO PLACE, BUT ALERT TO TIME. PT IS REQUESTING DRINK OF PEPSI AT BEDSIDE. THIS NURSE ASSISTED PT REQUESTED. ON 02 AT 2L VIA NC. NO MONITOR. IV SEEN TO LEFT FOREARM THAT IS CURRENTLY SALINE LOCKED. HAWLEY CATHETER SEEN WITH YELLOW, CLEAR URINE. NO NEED AT THIS CURRENT TIME. WILL CONTINUE TO MONITOR AND CONTINUE WITH PLAN OF CARE.
--- NOTE | 2017-03-21 07:53 | NUR ---
DR. ARANA ON UNIT. NEW ORDERS RECEIVED FOR CBC AND CMP. INFORMED DR. ARANA OF PTS STATUS. WILL CONTINUE TO MONITOR.
[2017-03-21 07:58] VITALS: BP 141/79
[2017-03-21 08:33] LABS: BASOPHILS 0.3 % (0-2); EOSINOPHILS 0 % (0-7); HEMATOCRIT 29.4 % (42.0-54.0); HEMOGLOBIN 9.6 g/dL (13.5-17.5); IMMATURE GRANULOCYTES 2.4 % (0-5); LYMPHOCYTES 10.8 % (15-50); MCH 30.4 pg (26.0-34.0); MCHC 32.7 g/dL (31.0-37.0); MEAN PLATELET VOLUME 11.2 fL (7.4-10.4); MONOCYTES 7.8 % (2-11); NEUTROPHILS 78.7 % (40-80); PLATELET COUNT 316 10x3/uL (130-400); RBC 3.16 10x6/uL (4.20-6.10); RDW 19.4 % (11.5-14.5); WBC 11.9 10x3/uL (4.8-10.8)
[2017-03-21 08:47] LABS: ALBUMIN 1.3 g/dL (3.4-5.0); ANION GAP 15.6 mmol/L (8-16); BILIRUBIN - TOTAL 1.7 mg/dL (0.2-1.3); CARBON DIOXIDE 22.3 mmol/L (21.0-32.0); CREATININE - SERUM 1.3 mg/dL (0.6-1.3); PROTEIN - SERUM 6.6 g/dL (6.4-8.2)
[2017-03-21 08:48] LABS: POTASSIUM - SERUM 2.9 mmol/L (3.5-5.1)
--- NOTE | 2017-03-21 08:51 | NUR ---
SOLITARIO FROM LAB CALLED TO REPORT THAT PT HAS CRITICAL POTASSIUM LEVEL OF 2.9. WILL CALL DR. ARANA AND INFORM HIM OF THIS.
--- NOTE | 2017-03-21 08:53 | NUR ---
CALLED DR. ABRAMS CELL PHONE WITH NO ANSWER. LEFT VOICEMAIL. WILL AWAIT CALLBACK.
--- NOTE | 2017-03-21 11:43 | NUR ---
CALLED DR. ABRAMS OFFICE. SPOKE WITH [place] IN ANSWERING SERVICE. WILL AWAIT CALLBACK.
--- NOTE | 2017-03-21 11:45 | NUR ---
RECEIVED CALLBACK FROM CONNER (DR. ABRAMS NURSE) WITH NEW ORDERS RECEIVED.
[2017-03-21 11:54] VITALS: BP 112/70
--- NOTE | 2017-03-21 11:58 | NUR ---
CALLED DR. ABRAMS OFFICE REGARDING PTS UA RESULT (GRAM POSITIVE COCCI). AWAITING CALLBACK.
--- NOTE | 2017-03-21 12:03 | NUR ---
RECEIVED CALLBACK FROM CONNER (DR. ABRAMS NURSE). INFORMED HER THAT PTS UA RESULT IS GRAM POSITIVE COCCI. INFORMED CONNER THAT PT HAS NOT BEEN FEVERISH TODAY ON SHIFT SO FAR. NEW ORDERS RECEIVED.
--- NOTE | 2017-03-21 13:57 | NUR ---
1300 CHECKED PTS BS THIS AFTERNOON. PER PTS FAMILY MEMBER PT IS A DIABETIC. PT INFORMED ME THAT HE DOES NOT TAKE INSULIN AT HOME BUT WHEN ASKED IF HE TAKES METFORMIN PT REPLIED "YES". BS IS 189. THIS NURSE HELD PTS METFORMIN THIS AM DUE TO PT HARDLY EATING. CONNER (DR. ABRAMS NURSE) PAGED TO ADDRESS THIS ISSUE. WILL AWAIT CALLBACK AND CONTINUE TO MONITOR. 1400- RECEIVED CALLBACK FROM CONNER (DR. ABRAMS NURSE). I VOICED MY CONCERN FOR PT BEING DIABETIC AND NOT HAVING BLOOD SUGARS CHECKED (NONE ORDERED). I INFORMED CONNER THAT I HELD PTS METFORMIN THIS AM DUE TO PT NOT EATING. I INFORMED CONNER THAT THIS AFTERNOON I CHECKED PTS BS AND IT IS 189. CONNER GAVE NEW ORDERS TO CHECK BS ACHS. CONNER STATES "DO NOT GIVE PT INSULIN IF HE IS NOT EATING OR BS IS <200, ONLY TX IF BS IS >200 AND PT IS EATING". THIS NURSE ALSO VOICED CONCERN FOR PTS LUNGS SOUNDING CRACKLY UPON SHIFT ASSESSMENT THIS AM. I INFORMED CONNER THAT I WAS CONCERNED FOR PT CATCHING PNEUMONIA. NEW ORDERS RECEIVED BY CONNER FOR BREATHING TX Q6H STATED AND INCENTIVE SPIROMETER. ORDERS PLACED GIVEN. CONNER ALSO GAVE ORDERS FOR ZOFRAN PRN NEEDED. WILL PASS THIS INFORMATION ON IN REPORT TO NEXT SHIFT. WILL DO ORDERED AND CONTINUE TO MONITOR.
--- NOTE | 2017-03-21 15:34 | NUR ---
PT IS AGGITATED IN ROOM STATING HE WANTS TO GET OUT OF HERE. PT STATES HE DOES NOT WANT TO PARTICIPATE IN THE "TOURNAMENT". I INFORMED PT THAT HE IS IN THE HOSPITAL ([facility]). I TRIED TO CALM PT AND STATED THAT IF I COULD I WILL GET AHOLD OF HIS SON (POA). NO NUMBER IN CHART FOR SON. ATTEMPTED TO CALL WIFES PHONE NUMBER PROVIDED IN CHART, ANSWERING MESSAGE PICKED UP STATED THE PHONE IS NO LONGER IN SERVICE.
[2017-03-21 16:12] VITALS: BP 138/76
--- NOTE | 2017-03-21 16:57 | NUR ---
PT REFUSES TO LET ANYONE DRAW HIS BLOOD TO CHESK HIS K+. PT HAS BEEN REFUSING CARE ALL DAY. PHONE NUMBERS ON FILE ARE INVALID. WILL CONTINUE TO MONITOR
--- NOTE | 2017-03-21 18:51 | NUR ---
PT IS CURRENTLY LAYING IN BED ON BACK WITH EYES OPEN RESTING. PT YELLS AT TIMES. PT IS CONFUSED. PT IS LESS AGITATED FROM EARLIER ON SHIFT. SON AND POObed BENNETT, WAS RECENTLY ON UNIT VISITING PT. BENJI NUMBER TAKEN DUE TO NOT HAVING WORKING PHONE NUMBER FOR FAMILY MEMBER IN CHART. WILL PASS THIS ALONG IN REPORT TO PLASTIC EXTRUSION OPERATOR NURSE. WILL CONTINUE TO MONITOR.
--- NOTE | 2017-03-21 19:41 | NUR ---
PT RESTING IN BED. C/O EXCRUCIATING PAIN IN LEFT ARM, ALSO PAIN THROUGHOUT BODY. PT MOANING OUT IN PAIN. WILL GIVE THE ORDERED HYDROMORPHONE. PT ON 2.5L OF O2 VIA NC. TUBING OF NC IS TAPED TO RIGHT SIDE OF FACE R/T SORE BEHIND EAR. BRACE ON RIGHT WRIST NOTED. PT TILTED TO RIGHT SIDE WITH A PILLOW. PT DENIES ANY NEEDS. NO S/S OF DISTRESS. BED LOW AND CALL LIGHT WITHIN REACH. RAYSHAWN ALARM ATTACHED TO BED. WILL CPOC
[2017-03-21 20:00] VITALS: BP 89/50
[2017-03-22] VITALS: BP 92/52
--- NOTE | 2017-03-22 01:02 | NUR ---
PT STILL HAS NOT TAKEN MEDS. CRUSHED MEDS AND ATTEMPTED PUTTING IN PUDDING. PT STILL WOULD NOT TAKE THE MEDS. WILL THROW MEDS AWAY AND PUT NOT GIVEN ON EMAR. POSSIBLE IV MEDS INSTEAD OF PO?
--- NOTE | 2017-03-22 01:03 | NUR ---
PT MOANING OUT IN PAIN. YELLS OUT WHEN GOING TO SCAN ID BRACLET. PT GIVEN ORDERED HYDROMORPHONE. IN 20-30 MINS WE WILL TRY AND GIVE PT A PARTIAL BATH TO HELP CLEAN AND COMFORT PT. PT DENIES ANY NEEDS. NO S/S OF DISTRESS. WILL CPOC
--- NOTE | 2017-03-22 01:42 | NUR ---
BATH NOT GIVEN. PT YELLS OUT IN PAIN AT THE SLIGHTEST TOUCH. C.N.A WASHED PT FACE AND DID FOLLEY CARE. PT REPOSITONED TO TILT TO LEFT. USING A 1ST STEP OVERLAY BED. PT NOT YELLING OUT MUCH LONG YOU DONT TOUCH HIM. BED LOW AND CALL LIGHT WITHIN REACH. RAYSHAWN ALARM ON AND ACTIVE. WILL CPOC
--- NOTE | 2017-03-22 02:47 | NUR ---
PT BATHED. NEW GOWN AND NEW LINENS. PT REPOSITIONED TO LEFT SIDE. PT RIGHT HAND BRACE REMOVED AND HAND CLEANED AND BRACE WIPED OFF. PT C/O LEFT WRIST. WRIST IS SWOLLEN AND BRUISED. PT STATES HE FELL A WHILE BACK. PT HAS A FENTANYL PATCH ON HIS LEFT UPPER ARM. 75MCG DATED FOR THE . TODAY IS THE WILL REMOVE BECAUSE THEY ARE COMMON TO LAST 3DAYS. WILL CHECK PT HOME MEDS PRIOR TO REMOVING. IF I LEAVE IT ON I WILL LEAVE A NOTE. PT DENIES ANY NEEDS. NO S/S OF DISTRESS. WILL CPOC
[2017-03-22 04:00] VITALS: BP 99/56
--- NOTE | 2017-03-22 06:15 | NUR ---
PT ASLEEP RECEIVING BREATHING TREATMENT. RESPONDS TO VERBAL STIMULI. STATES HE IS HURTING 10/10 IN SAME PLACES. ( LEGS ARMS NECK BACK.) PT DENIES ANY OTHER NEEDS BUT CONTINUES TO YELL OUT HELP ALTHOUGH I AM IN THE ROOM. WILL GIVE HYDROMORPHONE AND BENADRYL TO HELP PTS PAIN. BED LOW AND CALL LIGHT WITHIN REACH. RAYSHAWN ALARM ACTIVE. WILL CPOC
--- NOTE | 2017-03-22 07:30 | NUR ---
REPORT RECIEVED. PT VERY LETHARGIC THIS MORNING, WOULD NOT EAT BREAKFAST. WHEN ASKED PT TO SAY FULL NAME, BUT WAS UNABLE TO DO SO. WILL REASSESS NEURO STATUS LATER TODAY. PT MOST LIKELTY LETHARGIC DUE TO MEDICATION GIVEN PRN. RR EVEN AND UNLABORED. WILL CTM.
[2017-03-22 07:53] LABS: ANION GAP 15.1 mmol/L (8-16); CALCIUM 9.2 mg/dL (8.5-10.1); CARBON DIOXIDE 22.7 mmol/L (21.0-32.0); CREATININE - SERUM 1.4 mg/dL (0.6-1.3); POTASSIUM - SERUM 3.8 mmol/L (3.5-5.1)
[2017-03-22 08:00] VITALS: BP 108/64
--- NOTE | 2017-03-22 09:30 | NUR ---
MORNING MEDS GIVEN, HAD TO CRUSH MEDS DUE TO PT BEING LETHARGIC THIS MORNING. SWALLOWED IN APPLESAUCE EASILY.
--- NOTE | 2017-03-22 11:25 | NUR ---
PTS BP 94/57. PT ALERT, DISORIENTED. WILL CTM PTS BP.
[2017-03-22 12:00] VITALS: BP 97/54
--- NOTE | 2017-03-22 13:51 | NUR ---
PT HAS BEEN SHOUTING FOR PAST HR. WILL RECHECK BP AND SEE IF BP HAS INCREASED ENOUGH TO GIVE PT PRN PAIN MEDS.
--- NOTE | 2017-03-22 14:00 | NUR ---
PTS BP IS 103/53. WILL GIVE PRN PAIN MEDS AND CTM. ORAL CARE PROVIDED, PT BECAME VERY AGITATED DURING CARE. RR EVEN AND UNLABORED, WILL CTM.
[2017-03-22 19:00] VITALS: BP 111/56
--- NOTE | 2017-03-22 19:20 | NUR ---
PT RESTING IN BED. SCREAMING OUT IN PAIN BUT DENIES ANY PAIN. PT KNOWS NAME , CITY, AND YEAR. IS NOT SURE OF FACILITY. PT DENIES ANY NEEDS, NO S/S OF DISTRESS. WILL CPOC
--- NOTE | 2017-03-23 03:20 | NUR ---
PT REPOSITIONED TO TILT TO LEFT SIDE. PT SCREAMS OUT WHEN TOUCHED, WHEN LETTING HEAD BACK TO PULL UP YELLED OUT IN PAIN. LEFT WRIST IS SWOLLEN. RIGHT WRIST HAS A BLACK BRACE ON IT. PT STATES HE IS MORE COMFORTABLE NOW. CLOSING HIS EYES AND TRYING TO FALL ASLEEP. PT DENIES ANY NEEDS. NO S/S OF DISTRESS. WILL CPOC
[2017-03-23 04:00] VITALS: BP 108/54
--- NOTE | 2017-03-23 04:23 | NUR ---
PT YELLING OUT IN PAIN. ORDERED PAIN MED ALREADY GIVEN. PT DENIES ANY NEEDS WHEN HE IS CHECKED ON AND CONTINUES TO YELL OUT WHEN I LEAVE ROOM. BED LOW AND CALL LIGHT WITHIN REACH. NO S/S OF DISTRESS. WILL CPOC
--- NOTE | 2017-03-23 07:10 | NUR ---
RECEIVED REPORT. ASSUMED CARE OF PATIENT. CALL LIGHT WITHIN REACH. 1ST STEP OVERLAY PATENT. RESP EVEN AND UNLABORED. NO DISTRESS.
[2017-03-23 08:00] VITALS: BP 109/58
--- NOTE | 2017-03-23 08:45 | NUR ---
PATIENT REFUSED AM MEAL. PATIENT ACCEPTED FEW SIPS OF FRESH H2O AND PEPSI. COUGH X 1 NOTED AFTER CONSUMING H2O. NO DISTRESS.
--- NOTE | 2017-03-23 09:30 | NUR ---
PATIENT NOTED TO HAVE BRACE TO RIGHT WRIST/FOREARM. NO BRACE TO LEFT FOREARM. LEFT WRIST/FOREARM SWOLLEN. ELEVATED ON PILLOWS.
--- NOTE | 2017-03-23 11:55 | NUR ---
FSBS 138. NO INSULIN COVERAGE PER SLIDING SCALE.
[2017-03-23 12:00] VITALS: BP 97/49
--- NOTE | 2017-03-23 13:24 | NUR ---
PAGED TO REQUEST OTHER PAIN MEDS. PATIENTS BP 99/54, DILAUDID WILL DECREASE BP/PULSE EVEN FURTHER.
--- NOTE | 2017-03-23 13:26 | NUR ---
* Is the patient Alert and Oriented? Yes 0 * PCP Dr. Ricks 0 * Pharmacy [facility] on [address] 0 * Preadmission Environment Jail Facility 0 * Facility Name [place] 0 * ADLs Partial Dependent 0 * Partial ADLs (Assistance needed) Ambulation Bathing Dressing 0 * Equipment Glucometer Rolling Walker Shower Chair Wheelchair 0 * List name and contact numbers for known caregivers / representatives who currently or will assist patient after discharge: Son / ALOK Ambrosio [phone] Spouse - Ava 0 * Additional services required to return to the preadmission environment? Yes 0 * Can the patient safely return to the preadmission environment? Yes 0 * Has this patient been hospitalized within the prior 30 days at any hospital? Yes Patient Name: MISTI EASON Admission Status: Elective Accout number: [id number] Admission Date: 03-19-2017 : 1935 Admission Diagnosis: Attending: REINA ARANA Current LOS: 4 Planned Disposition: Jail Facility Primary Insurance: MEDICARE A & B Discharge Planning Comments: CM met with patient to assess dc plans/needs. Patient is alert & oriented. He states he was recently discharged from rehab to [facility], where he was for 2 days. He states he is weak and was there for physical therapy. He states he lives at home with his & son. He wants to return to [place] to complete physical therapy prior to going home. CM will follow & assist as needed. Cabinetmaker Supervisor: Lima Castaneda
--- NOTE | 2017-03-23 15:42 | NUR ---
ANOTHER PAGE SENT TO DR. ARANA. AWAITING CALL BACK.
[2017-03-23 16:00] VITALS: BP 99/53
--- NOTE | 2017-03-23 16:46 | NUR ---
FSBS 131. NO INSULIN PER SLIDING SCALE. CONTINUE TO HOLD METFORMIN PATIENT REFUSES TO EAT. PATIENT WITH FAMILY AT BEDSIDE AT THIS TIME. NO DISTRESS.
--- NOTE | 2017-03-23 19:29 | NUR ---
REPORT GIVEN TO ONCOMING NURSE AT THIS TIME. RADIOLOGY HERE AND COMPLETED XRAY TO LEFT WRIST ALSO.
[2017-03-23 20:00] VITALS: BP 94/55
--- NOTE | 2017-03-23 20:01 | NUR ---
PT C/O PAIN 7/10 WHEN NOT MOVING 10/10 WHEN MOVING. ORDERED HYDROMORHONE GIVEN. PT ASKED TO BE PUT ON BED MIMS FOR A BM. ASKED FOR PAIN MEDS FIRST. PT DENIES ANY OTHER NEEDS. NO S/S OF DISTRESS. WILL CPOC
--- NOTE | 2017-03-23 21:35 | NUR ---
PT PUT ON BEDPAN AND OFF AGAIN. STATES HE NEEDS TO HAVE A BM. PT DID NOT HAVE BM. PT REPOSITIONED TO TILT RIGHT. LEFT LEG ELEVATED WITH PILLOW. PT DENIES ANY NEEDS NO S/S OF DISTRESS. WILL CPOC
--- NOTE | 2017-03-23 23:52 | NUR ---
PT HAD A PARTIAL BATH AND IS REPOSITONED. PT PREFERED TO TILT TO RIGHT SIDE AGAIN. FOLLEY OUTPUT IS CONCENTRATED RIZWANA. PT DENIES ANY NEEDS. NO S/S OF DISTRESS. WILL CPOC
[2017-03-24] VITALS: BP 102/55
--- NOTE | 2017-03-24 02:57 | NUR ---
PT YELLING AND MOANING OUT IN PAIN. STATES THE BONES IN HIS BACK HURT. HYDROMORPHONE GIVEN FOR PRN PAIN. PT IS NOW ASLEEP AND SNORING. RESPIRATIONS EVEN AND UNLABORED. NO S/S OF DISTRESS. WILL CPOC
[2017-03-24 05:07] LABS: BASOPHILS 0.4 % (0-2); EOSINOPHILS 0 % (0-7); HEMATOCRIT 28.7 % (42.0-54.0); HEMOGLOBIN 9.3 g/dL (13.5-17.5); IMMATURE GRANULOCYTES 3.8 % (0-5); LYMPHOCYTES 11.3 % (15-50); MCHC 32.4 g/dL (31.0-37.0); MCV 92.6 fL (80.0-100.0); MEAN PLATELET VOLUME 11.6 fL (7.4-10.4); MONOCYTES 2.8 % (2-11); NEUTROPHILS 81.7 % (40-80); PLATELET COUNT 261 10x3/uL (130-400); RDW 19.4 % (11.5-14.5); WBC 14.7 10x3/uL (4.8-10.8)
[2017-03-24 05:38] LABS: ALBUMIN 1.2 g/dL (3.4-5.0); ANION GAP 14.2 mmol/L (8-16); BILIRUBIN - TOTAL 0.78 mg/dL (0.2-1.3); CALCIUM 8.6 mg/dL (8.5-10.1); CARBON DIOXIDE 23.8 mmol/L (21.0-32.0); CREATININE - SERUM 1.5 mg/dL (0.6-1.3); PROTEIN - SERUM 6.4 g/dL (6.4-8.2)
[2017-03-24 08:00] VITALS: BP 100/51
--- NOTE | 2017-03-24 11:22 | NUR ---
0715- AM ROUNDING- RECEIVED REPORT FROM CHEMICAL TREATMENT OPERATOR NURSE JASIEL SHAH. PT IS CURRENTLY LAYING IN BED ON BACK WITH EYES OPEN. PT YELLS OUT AT TIMES. PT APPEARS TO BE CONFUSED. ON FIRST STEP OVERLAY MATTRESS. ON 02 AT 2.5L VIA NC (RIGHT SIDE TAPED TO SIDE OF CHEEK DUE TO WOUND ON RIGHT EAR). NO MONITOR. IV SEEN TO RIGHT FOREARM THAT IS CURRENTLY SALINE LOCKED. HAWLEY CATHETER SEEN WITH CLEAR, SLIGHTLY DARK URINE. BED IS IN LOW POSITION, SIDE RAILS ARE UP X2, AND CALL LIGHT IS IN REACH. WILL CONTINUE TO MONITOR AND CONTINUE WITH PLAN OF CARE.
[2017-03-24 12:00] VITALS: BP 97/58
--- NOTE | 2017-03-24 13:32 | NUR ---
1000- HAWLEY CARE DONE. ORAL CARE DONE. STAT LOCKED CHANGED BY ASHANTI MICHELLE. PT TURNED ON RIGHT SIDE. PERINEAL AREA CLEANED.
--- NOTE | 2017-03-24 13:35 | NUR ---
Nutrition Follow Up: Pt was moaning in pain at the time of RD visit. He stated that he was hurting and this is why he has not been eating. Pt said that he does not like Ensure but does like Boost. RD spoke with RN regarding pt pain. Pt is eating 12% meal avg on a regular diet. No BM since admit. Meds noted including Bumex. Labs reviewed. Noted pt with stage II to sacrum. Rec continue current diet. Will send Boost with meals. Will continue to provide selective menus and honor food preferences. RD following.
--- NOTE | 2017-03-24 15:51 | NUR ---
Patient Name: MISTI EASON Encounter No: [id number] : 1935 Primary Insurance: MEDICARE A & B Anticipated DC Date: 03-25-2017 Planned Disposition: Senior Living Facility External Planned Provider: TO BE DETERMINED DCP follow-up note: CM SPOKE TO PT IN ROOM WHO REPORTS PLAN TO RETURN TO [place] FOR REHAB SERVICES. CM CALLED [facility], , SPOKE TO YOU WHO INFORMED CM THAT PT IS NOT APPROPRIATE FOR REHAB, [place] WILL NOT ACCEPT FOR REHAB. CM MET WITH PT WHO CRIED AND REPORTED THAT HIS FAMILY CANNOT TAKE CARE OF HIM AT HOME AND PT WANTS CM TO GET HIM IN [place] FOR RESIDENTIAL CARE OR HOSPICE CARE. CM ASKED ABOUT FAMILY, PT REPORTS HE MAKES HIS OWN DECISIONS BUT REPORTS "IT MIGHT BE A GOOD IDEA TO CALL MY SON." CM CALLED SABRINA EASON, SON/POA, , LEFT MESSAGE ASKING FOR RETURN CALL. CM CALLED VERONICA VILLARREAL, GRANDDAUGHTER, . VERONICA REPORTS SABRINA TO BE PT'S POA AND MAKES DECISIONS FOR PT. VERONICA REPORTS PT HAS BEEN APPROVED FOR HOSPICE. SHE WILL DISCUSS OPTION OF HOME WITH HOSPICE OR [place] FOR HOSPICE AND HAVE SABRINA CALL CM. CM RECEIVED CALL FROM SABRINA EASON; SABRINA REPORTS THAT HE WOULD NOT LIKE INFORMATION SENT TO [place]. SABRINA THINKS PT IS NOT ENTIRELY IN HIS RIGHT MIND AND THINKS PT SHOULD BE A NO CODE AND RE EVAULATED FOR INPATIENT HOSPICE. SABRINA WILL SEE PT LATER TODAY AND WILL HAVE CM SPEAK TO PT THEN. PT WILL NOT BE RETURNING TO [place]. PT'S SON AND POA BELIEVES PT TO NOT BE FULLY IN HIS RIGHT MIND AND WOULD LIKE PT TO BE A NO CODE AND REEVALUATED FOR HOSPICE. CM TO CONTINUE TO FOLLOW AND ASSIST NEEDED. SABINO ROSE, CASE MANAGEMENT
[2017-03-24 16:00] VITALS: BP 101/60
--- NOTE | 2017-03-24 17:25 | NUR ---
PT IS CURRENTLY SITTING UP IN BED WITH EYES OPEN RESTING. PT REFUSED DINNER TRAY FOR ASHANTI MICHELLE. BED IS IN LOW POSTIION, SIDE RAILS ARE UP X2, AND CALL LIGHT IS IN REACH. WILL CONTINUE TO MONITOR.
--- NOTE | 2017-03-24 19:22 | NUR ---
PT RESTING IN BED. HOB 50. O2 2.5L NC. PT DENIES PAIN BUT IS GRUNTING AND SAYING OH MAN. PT HAS NO S/S OF DISTRESS. BED LOW AND CALL LIGHT IN REACH. WILL CPOC
[2017-03-24 20:00] VITALS: BP 95/48
--- NOTE | 2017-03-24 22:09 | NUR ---
NEW DRSG APPLIED BEHIND RIGHT EAR, NON ADHESIVE USED UNDER A 2X2. NC SERCURED WITH TAPE. PT DENIES ANY NEEDS. NO S/S OF DISTRESS. WILL CPOC
[2017-03-25] VITALS: BP 95/55
--- NOTE | 2017-03-25 01:00 | NUR ---
PT RESTING IN BED. YELLING OUT FOR HELP AND CALLING PEOPLES NAMES. WHEN ASKED IF NEEDED ANY THING STATES NO AND ALSO DECLINES ANY PAIN. PT REPOSITONED AND NOURISHMENT OFFERED. PT DENIES ANY NEEDS. NO S/S OF DISTRESS. WILL CPOC
[2017-03-25 04:00] VITALS: BP 96/58
--- NOTE | 2017-03-25 06:48 | NUR ---
PT FSBS IS 96. NO INSULIN GIVEN. PT ATE A FEW BITES OF APPLE SAUCE AND DRANK SOME WATER. PT DENIES ANY NEEDS NO S/S OF DISTRESS. WILL CPOC
[2017-03-25 07:09] LABS: ANION GAP 15.9 mmol/L (8-16); CALCIUM 7.9 mg/dL (8.5-10.1); CARBON DIOXIDE 22.2 mmol/L (21.0-32.0); CREATININE - SERUM 1.5 mg/dL (0.6-1.3); POTASSIUM - SERUM 4.1 mmol/L (3.5-5.1)
--- NOTE | 2017-03-25 07:59 | NUR ---
AM ROUNDING- RECEIVED REPORT FROM OCEAN EXPORT AGENT NURSE ALYSSA. PT IS CURRENTLY SITTING UP IN BED WITH EYES OPEN RESTING. PT STATES HE FEELS LIKE HE HAS COTTON IN HIS MOUTH. GAVE PT SIP OF WATER. ON 02 AT 2.5L VIA NC. NO MONITOR. IV SEEN TO LEFT FOREARM THAT IS CURRENTLY SALINE LOCKED. HAWLEY CATHETER SEEN. ON FIRST STEP OVERLAY MATTRESS. NO NEED AT CURRENT TIME. BED IS IN LOW POSITION, SIDE RAILS ARE UP X2, AND CALL LIGHT IS IN REACH. WILL CONTINUE TO MONTIOR AND CONTINUE WITH PLAN OF CARE.
[2017-03-25 09:31] VITALS: BP 100/56
--- NOTE | 2017-03-25 09:44 | NUR ---
Patient Name: MISTI EASON Encounter No: [id number] : 1935 Primary Insurance: MEDICARE A & B Anticipated DC Date: 03-25-2017 Planned Disposition: Care Home Facility External Planned Provider: [facility], [facility] SUPERVISOR CARE PRIVATE PAY BED DCP follow-up note: CM SPOKE TO PT IN ROOM REGARDING DISCHARGE PLANNING. PT REPORTS HE IS STILL WILLING FOR LONG-TERM PLACEMENT AND HOSPICE. PT WANTS TO REMAIN A FULL CODE. PT REPORTS THAT SABRINA IS ASSISTING WITH DISCHARGE PLANNING FOR LONG-TERM PLACEMENT, THEY TALKED LAST NIGHT. CM CALLED CM CALLED SIOBHAN RAMOS/ALOK, , DISCUSSED OPTIONS. SABRINA BELIVES PT TO BE INPATIENT HOSPICE APPROPRIATE; CM EXPLAINED PT'S DESIRE FOR FULL CODE AND THAT CANNOT BE DONE IN THE HOSPITAL ON HOSPICE, BUT CAN BE ACCOMODATED AT HOME OR LONG-TERM. SABRINA WOULD LIKE CM TO EXPLORE [facility] FOR PRIVATE PAY PLACEMENT. IF IT IS TOO EXPENSIVE, SABRINA REPORTS HE WILL TAKE PT HOME WITH HOSPICE. CHOICE LETTER COMPLETED. CM CALLED ROGELIO, CLINICAL LIAISON FOR [facility], , WHO WILL OBTAIN PRIVATE PAY RATE FOR [facility] AND CALL CM BACK. CM CALLED [facility], , VERIFIED THEY CONTRACT WITH [facility], PATIENT CAN BE FULL CODE STATUS IN LONG-TERM AND HOME HOSPICE. [facility] HAS PRIVATE PAY HOME AVAILABLE FOR CARE WHICH RANGES IN [place] FROM $4800 TO $5500 MONTHLY. CM WAITING PRIVATE PAY RATE FROM [facility], WILL DISCUSS WITH SIOBHAN RAMOS/ALOK, WHEN RECEIVED. Felice Rich, CASE MANAGEMENT
--- NOTE | 2017-03-25 15:05 | NUR ---
Patient Name: MISTI EASON Encounter No: [id number] : 1935 Primary Insurance: MEDICARE A & B Anticipated DC Date: 03-25-2017 Planned Disposition: HOME WITH HOSPICE External Planned Provider: [facility] DCP follow-up note: CM MET WITH SABRINA AT PT'S ROOM. SABRINA REPORTS HE PLANS TO TAKE PT HOME WITH [facility], WANTS CM TO SEND INFORMATION TO [place] TO MAKE ARRANGEMENTS. SABRINA WOULD LIKE TO KEEP PT IN THE HOSPITAL LONG POSSIBLE HE FEELS PT IS GETTING VERY GOOD CARE HERE. CM EXPLAINED THAT THE DOCTOR WOULD BE MAKING THE DECISION REGARDING DISCHARGE AND THAT SABRINA AND ERIN NEED TO MAKE SURE THAT ALL ARRANGEMENTS ARE COMPLETED TO RECEIVE PT AT DISCHARGE. CM CALLED [facility], SPOKE TO AYDE AT [phone], NOTIFIED OF HOME HOSPICE REFERRAL AND FAXED REFERRAL TO [place] AT [phone]. CM WAITING HOSPICE ARRANGEMENTS FOR HOME HOSPICE TO BE COMPLETED BY [facility]. Felice Rich, CASE MANAGEMENT
--- NOTE | 2017-03-25 16:02 | NUR ---
UPON TURNING PT, JASIEL MARTÍNEZ AND I SAW THAT PTS HAWLEY CATHETER WAS LEAKING BECAUSE LINEN IS SOILED. JASIEL ORTA BROKE HAWLEY CATHETER SEAL AND FLUSHED HAWLEY CATHETER WITH 40CC OF WATER. JASIEL MARTÍNEZ TURNED TUBING IN HAWLEY AND URINE BEGAN TO DRAIN. JASIEL MARTÍNEZ AND I CLEANED PT UP, THIS NURSE DID HAWLEY CARE. DRESSINGS TO BUTTOCK AREA ARE CLEAN, DRY AND INTACT. AREA AROUND PERINEAL AREA IS RED, COVERED SITE WITH CALMOSEPTINE OINTMENT. LINEN CHANGED AND NEW PAD PLACED. BED IN LOW POSITION, SIDE RAILS ARE UP X2, AND CALL LIGHT IS IN REACH. PT GIVEN SIP OF TEA. WILL CONTINUE TO MONITOR.
--- NOTE | 2017-03-25 17:22 | NUR ---
PT IS CURRENTLY SITTING UP IN BED WITH EYES CLOSED RESTING. ASHANTI FREITAS STATES PT ATE A FEW BITES OF DINNER. NO NEED AT CURRENT TIME. WILL CONTINUE TO MONITOR.
--- NOTE | 2017-03-25 17:45 | NUR ---
RECEIVED CALL FROM DR. ARANA STATING TO PUT ORDERS IN FOR HOSPICE CONSULT. INFORMED DR. ARANA THAT CONSULT WAS ALREADY PLACED. NO NEW ORDERS RECIEVED.
[2017-03-25 20:00] VITALS: BP 107/62
--- NOTE | 2017-03-25 21:22 | NUR ---
PT AWAKE, ALERT, ORIENTED TO PERSON AND SITUATION, C/O GREAT PAIN IN RLE, AND WHEN TAKING HIS PO MEDICATIONS, STATES IT HURTS HIS STOMACH. I HAVE HELD PTS B/P MEDS AT THIS TIME, HIS B/P IS 107/62, AND HE JUST RECEIVED HIS PRN PAIN MEDICATION OF DILAUDID. PT IS CALM AT THIS TIME, DENIES ANY SPECIFIC NEEDS. I HAVE GIVEN PT WATER, AND ADMINISTERED HIS PO MEDS WITH CHOCOLATE PUDDING. PT IS RESTING COMFORTABLY AT THIS TIME. WILL CONTINUE TO MONITOR CLOSELY. BED LOW, CALL LIGHT IN REACH, SIDE RAILS X 2, HOB 30 DEGREES, BED ALARM ON.
--- NOTE | 2017-03-25 23:47 | NUR ---
PT HAS BEEN YELLING OUT, INCREASED AGITATION. PRN BENADRYL GIVEN IV. PT STATES HE IS IN SO MUCH PAIN THAT IT CAUSES HIM TO YELL OUT. CONTINUE TO MONITOR CLOSELY. BED LOW, CALL LIGHT IN REACH, SIDE RAILS X 2, HOB 30 DEGREES, BED ALARM ON.
[2017-03-26 04:00] VITALS: BP 116/72
--- NOTE | 2017-03-26 05:17 | NUR ---
PT RESTING COMFORTABLY, EASILY ROUSABLE TO VERBAL STIMULI. PT DID RECEIVE A BED BATH, LINEN AND GOWN CHANGE. CONTINUE TO MONITOR CLOSELY. BED LOW, CALL LIGHT IN REACH, SIDE RAILS X 2, HOB 20 DEGREES. BED ALARM ON.
--- NOTE | 2017-03-26 08:09 | NUR ---
AM ROUNDS - PT IS IN BED AND AWAKE. YELLOW BAND ON. IV TO LEFT FA, SL. 4L O2 VIA NC. HAWLEY DRAINING CLEAR YELLOW. BED AT LOWEST POSITION. CALL SERNA IN USE/REACH. SIDE RAILS UP X3. NO NEEDS AT THIS TIME. WILL CONTINUE TO MONITOR
[2017-03-26 09:17] VITALS: BP 110/72
[2017-03-26 12:01] VITALS: BP 91/53
--- NOTE | 2017-03-26 12:42 | NUR ---
Nutrition Follow Up: Chart reviewed. Noted pt to d/c with hospice care. Pt is eating 9% meal avg on a regular diet. Pt is receiving Boost TID. No BM since admit. Labs reviewed. Meds noted including Bumex. Rec continue current diet, supplement regimen. RD following.
--- NOTE | 2017-03-26 14:48 | NUR ---
Patient Name: MISTI EASON Encounter No: [id number] : 1935 Primary Insurance: MEDICARE A & B Anticipated DC Date: 03-25-2017 Planned Disposition: Nursing Facility [facility] Cert External Planned Provider: [facility], SKILLED BED DCP follow-up note: CM RECEIVED CALL FROM [facility], SPOKE TO JOSE G, , WHO IS WORKING ON SKILLED PLACEMENT AT [facility] WITH COMFORT CARE; JOSE G REPORTS SHE HAS BEEN IN CONTACT WITH POA/SON SABRINA, WHO IS IN AGREEEMENT WITH PLAN AND IS WORKING WITH [place] FOR PLACEMENT TODAY. JOSE G LATER ARRIVED AND GATHERED REFERRAL INFORMATION FOR PLACEMENT AT [facility]. CM WAITING HOSPICE ARRANGEMENTS FOR HOME HOSPICE TO BE COMPLETED BY [facility]. Felice Rich, CASE MANAGEMENT
--- NOTE | 2017-03-26 15:20 | NUR ---
Patient Name: MISTI EASON Encounter No: [id number] : 1935 Primary Insurance: MEDICARE A & B Anticipated DC Date: 03-26-2017 Planned Disposition: LONG TERM FACILITY External Planned Provider: [facility], SKILLED BED DCP follow-up note: CM RECEIVED CALL FROM SABRINAHeike EASON, PT'S SON/POA, WHO REPORTS HE HAS MADE ARRANGEMENTS WITH ASSISTANCE OF [facility] TO PLACE PT AT [facility] FOR SKILLED CARE AND IT IS OK TO DISCHARGE PT NOW. CM SPOKE TO BEDSIDE NURSE WHO INFORMED CM THAT EDUARDA STORM [facility] CALLED AND LEFT HER CELL NUMBER AND [facility] IS READY TO ACCEPT PT NOW. RN ERIN HOUSE PAGED DR. ARANA AND SPOKE TO [employer] [facility]RA[facility] WHO WILL SPEAK TO DR. ARANA AND CALL CM BACK REGARDING DISCHARGE ORDERS. ONCE DISCHARGE ORDERS ARE RECEIVED, CALL NURSE REPORT TO [facility], ; FAX DISCHARGE INFORMATION TO [facility] AT [phone]. PT TO TRANSPORT VIA AMBULANCE. Felice Rich, CASE MANAGEMENT
[2017-03-26] MEDS ORDERED: ACETAMINOPHEN500 M1 PO (15:30)
[2017-03-26] MEDS ORDERED: CALMOSEPTINE OI71 GM TOPICAL (15:30)
[2017-03-26] MEDS ORDERED: IPRAT-ALBUT 0.5-3 ML UPD (15:30)
[2017-03-26] MEDS ORDERED: BACTRIM DS TABL1 TAB PO (15:30)
[2017-03-26 16:02] VITALS: BP 104/58
--- NOTE | 2017-03-26 17:05 | NUR ---
CALLED REPORT TO ANDREA GARNICA AT [facility]. CALLED [facility] FOR TRANSPORT. LISA SAID ETA IS ABOUT 1HR. WILL CONTINUE TO MONITOR
--- NOTE | 2017-03-26 18:34 | NUR ---
IV TO PT'S LEFT FA D/C, CATH TIP INTACT. 2X2 DRESSING APPLIED AND SECURED WITH TAPE. PT TOLERATED WELL. PT LEFT FLOOR VIA STRETCHER WITH [facility]. WILL D/C
== END 2017-03-26 18:36 | DRG 947 ==
LOC: D.M2 15:51
PROVIDERS: ADMIT Legal Medicine
PROC: 0T9B70Z Drainage of Bladder with Drainage Device, Via Natural or Artificial Opening (ICD-10-PCS; principal; 2017-03-19)
DX: R52 Pain, unspecified (principal); E43 Unspecified severe protein-calorie malnutrition; N17.9 Acute kidney failure, unspecified; I82.409 Acute embolism and thrombosis of unspecified deep veins of unspecified lower extremity; G93.1 Anoxic brain damage, not elsewhere classified; E46 Unspecified protein-calorie malnutrition; R58 Hemorrhage, not elsewhere classified; N28.89 Other specified disorders of kidney and ureter; L89.152 Pressure ulcer of sacral region, stage 2; E11.22 Type 2 diabetes mellitus with diabetic chronic kidney disease; I12.9 Hypertensive chronic kidney disease with stage 1 through stage 4 chronic kidney disease, or unspecified chronic kidney disease; N18.9 Chronic kidney disease, unspecified; J44.9 Chronic obstructive pulmonary disease, unspecified; D64.9 Anemia, unspecified; M19.90 Unspecified osteoarthritis, unspecified site; I25.10 Atherosclerotic heart disease of native coronary artery without angina pectoris; I73.9 Peripheral vascular disease, unspecified; Z86.718 Personal history of other venous thrombosis and embolism; Z79.01 Long term (current) use of anticoagulants; Z68.23 Body mass index [BMI] 23.0-23.9, adult